=== PATIENT | female | born 1960 | race Caucasian/White ===

== ENCOUNTER 2020-02-14 16:58 | Inpatient (IN) ==
[2020-02-14] MEDS ORDERED: 0.9 % Sodium Chloride 500 ML IVC ONE ×2 (17:44→19:17)
[2020-02-14 17:52] LABS: Bilirubin,Urine Negative (Negative); Blood,Urine Negative (Negative); Clarity,Urine Cloudy (Clear); Color,Urine Yellow (Yellow); Glucose,Urine (UA) Normal (Normal); Ketones,Urine Negative (Negative); Leukocyte Esterase,Urine Moderate (Negative); Nitrite,Urine Negative (Negative); Protein,Urine Negative (Neg-Trace); Specific Gravity,Urine 1.014 (1.010-1.025); Urobilinogen,Urine Normal (Normal)
[2020-02-14 17:54] LABS: Bacteria,Urine Few per hpf (None-Few); Hyaline Casts,Urine None Seen per lpf (None-Few); Squamous Epithelial Cell,Urine Many per lpf (None-Few)
[2020-02-14 18:13] LABS: RBC,Urine 0-3 per hpf (0-3)
[2020-02-14] MEDS ORDERED: *HR* HYDROcodone/Acet 10/325 mg TABLET PO ONE (18:42)
[2020-02-14] MEDS ORDERED: *HR* HYDROmorphone (PF) 1 MG/ML SYRINGE IVP ONE (18:43)
[2020-02-14 18:44] LABS: Basophils # 0.1 K/mcL (0.0-0.2); Basophils % 0.3 %; Eosinophils # 0.1 K/mcL (0.0-0.6); Eosinophils % 0.4 %; Hematocrit 32.4 % (35.3-44.9); Hemoglobin 10.1 g/dL (11.5-15.4); Immature Granulocytes % 0.5 % (0-4); Lymphocytes # 1.1 K/mcL (0.6-4.6); Lymphocytes % 6.9 %; Mean Corpuscular HGB Conc 31.2 g/dL (31.6-35.5); Mean Corpuscular Hemoglobin 27.8 pg (28.0-33.3); Mean Corpuscular Volume 89.3 fL (83.0-100.0); Mean Platelet Volume 10.5 fL (9.4-12.4); Monocytes # 0.7 K/mcL (0.0-1.3); Monocytes % 4.6 %; Neutrophils # 13.6 K/mcL (1.6-8.9); Platelet Count 279 K/mcL (140-400); Red Blood Count 3.63 M/mcL (3.82-4.97); Red Cell Distribution Width 17.5 % (11.5-14.5); Segmented Neutrophils % 87.3 %; White Blood Count 15.6 K/mcL (4.3-11.1)
[2020-02-14 19:14] LABS: Alanine Aminotransferase 10 Units/L (7-52); Albumin 3.7 g/dL (3.5-5.7); Albumin/Globulin Ratio 1.1 (1.1-2.2); Alkaline Phosphatase 93 Units/L (34-104); Aspartate Amino Transferase 17 Units/L (13-39); BUN/Creatinine Ratio 24 (6-26); Bilirubin,Direct 0.1 mg/dL (0.0-0.2); Bilirubin,Indirect 0.2 mg/dL (0.0-1.0); Bilirubin,Total 0.3 mg/dL (0.3-1.0); Blood Urea Nitrogen 40 mg/dL (6-20); Calcium 8.6 mg/dL (8.6-10.3); Carbon Dioxide 20 mEq/L (23-29); Chloride 102 mEq/L (98-107); Globulin 3.3 g/dL (2.4-3.5); Glucose 185 mg/dL (70-105); Lipase 56 Units/L (11-82); Osmolality,Calculated 291 (280-300); Potassium 5.2 mEq/L (3.5-5.1); Sodium 133 mEq/L (136-145); Troponin I < 0.03 ng/mL (< 0.04); eGFR For African Americans 38 (> 60); eGFR For Non-African Americans 31 (> 60)
[2020-02-14] MEDS ORDERED: Piperacillin/Tazobactam 3.375 GM in Water for inj. (sterile) 20 ML IVP ONE (19:17)
[2020-02-14] MEDS ORDERED: Naloxone 0.4 MG/ML INJ IVP PRN (19:56)
[2020-02-14] MEDS ORDERED: *HR* Promethazine 25 MG/ML VIAL IVP PRN (20:02)
[2020-02-14] MEDS ORDERED: Ondansetron 4 MG/2 ML VIAL IVP PRN (20:02)
[2020-02-14] MEDS ORDERED: 0.9 % Sodium Chloride 1,000 ML IVC SCH (20:15)
[2020-02-14] MEDS ORDERED: NON-FORMULARY MEDICATION 1 EACH EACH (Alendronate Sodium 70 MG) PO SCH (20:45)
[2020-02-14] MEDS ORDERED: Dextrose Gel 15 GM/37.5 ML TUBE PO PRN ×2 (20:58)
[2020-02-14] MEDS ORDERED: *HR* Dextrose 50 % in Water (Syg) 50 ML SYRINGE IVP PRN (20:58)
[2020-02-14] MEDS ORDERED: D5% in Water 1,000 ML IVC PRN (20:58)
[2020-02-14] MEDS ORDERED: NON-FORMULARY MEDICATION 1 EACH EACH (Gabapentin [Neurontin] 600 MG) PO SCH (21:00)
[2020-02-14] MEDS: Pregabalin 75 MG CAPSULE PO SCH (21:53)
[2020-02-14] MEDS: Insulin LISPRO 300 UNITS/3 ML VIAL SQ SCH (21:54)
[2020-02-14] MEDS: Piperacillin/Tazobactam 3.375 GM in 0.9 % Sodium Chloride Mini Bag 100 ML IVPB SCH (23:50)
[2020-02-15] MEDS: *HR* Heparin 5,000 UNIT/ML VIAL SQ SCH ×2 (06:07→17:21)
[2020-02-15] MEDS: Levothyroxine 25 MCG TABLET PO SCH (06:07)
[2020-02-15] MEDS: Insulin LISPRO 300 UNITS/3 ML VIAL SQ SCH ×4 (07:43→21:52)
[2020-02-15] MEDS: Aspirin Enteric Coated 81 MG Tablet PO SCH (07:50)
[2020-02-15] MEDS: Pregabalin 75 MG CAPSULE PO SCH (07:51)
[2020-02-15] MEDS: Cholecalciferol (D-3) 1,000 UNIT (25MCG) TABLET PO SCH (07:51)
[2020-02-15] MEDS: Piperacillin/Tazobactam 3.375 GM in 0.9 % Sodium Chloride Mini Bag 100 ML IVPB SCH ×2 (07:51→17:21)
[2020-02-15] MEDS: (Leflunomide [Arava] 20 MG) PO SCH (07:52)
[2020-02-15 08:06] LABS: Hematocrit 32.1 % (35.3-44.9); Hemoglobin 9.6 g/dL (11.5-15.4); Mean Corpuscular HGB Conc 29.9 g/dL (31.6-35.5); Mean Corpuscular Hemoglobin 27.5 pg (28.0-33.3); Mean Platelet Volume 10.2 fL (9.4-12.4); Platelet Count 243 K/mcL (140-400); Red Blood Count 3.49 M/mcL (3.82-4.97); Red Cell Distribution Width 17.7 % (11.5-14.5); White Blood Count 11.8 K/mcL (4.3-11.1)
[2020-02-15 08:24] LABS: Calcium 7.9 mg/dL (8.6-10.3); Potassium 4.7 mEq/L (3.5-5.1)
[2020-02-15] MEDS ORDERED: Furosemide 40 MG TABLET PO SCH (09:00)
[2020-02-15] MEDS ORDERED: lisinopriL 20 MG TABLET PO SCH (09:00)
[2020-02-15 10:30] LABS: Carcinoembryonic Antigen 2.3 ng/mL (Less than 5.0)
[2020-02-15] MEDS ORDERED: Isovue-370 500 ML BOTTLE IVP ONE (10:44)
[2020-02-15] MEDS: Tiotropium 18 MCG inhalation IH SCH (10:59)
[2020-02-15] MEDS ORDERED: Ringers Solution, Lactated 1,000 ML IVC ONE (12:27)
[2020-02-15] MEDS ORDERED: predniSONE 5 MG TABLET PO SCH (12:45)
[2020-02-15] MEDS: Hydrocortisone Sodium Succ 100 MG/2 ML VIAL IVP SCH (17:21)
[2020-02-15] MEDS: hydrOXYzine pamoate 25 MG CAPSULE PO SCH (21:52)
[2020-02-15] MEDS: Pregabalin 50 MG CAPSULE PO SCH (21:52)
[2020-02-16 02:59] LABS: Hematocrit 26.8 % (35.3-44.9); Hemoglobin 8.5 g/dL (11.5-15.4); Mean Corpuscular HGB Conc 31.7 g/dL (31.6-35.5); Mean Corpuscular Hemoglobin 28.3 pg (28.0-33.3); Mean Corpuscular Volume 89.3 fL (83.0-100.0); Mean Platelet Volume 9.8 fL (9.4-12.4); Platelet Count 212 K/mcL (140-400); Red Cell Distribution Width 17.1 % (11.5-14.5)
[2020-02-16 03:17] LABS: Calcium 7.8 mg/dL (8.6-10.3); Potassium 4.8 mEq/L (3.5-5.1)
[2020-02-16] MEDS: Piperacillin/Tazobactam 3.375 GM in 0.9 % Sodium Chloride Mini Bag 100 ML IVPB SCH ×3 (03:26→18:34)
[2020-02-16] MEDS: Hydrocortisone Sodium Succ 100 MG/2 ML VIAL IVP SCH ×3 (03:26→10:15)
[2020-02-16] MEDS: *HR* Heparin 5,000 UNIT/ML VIAL SQ SCH ×2 (05:38→17:19)
[2020-02-16] MEDS: Levothyroxine 25 MCG TABLET PO SCH (05:39)
[2020-02-16] MEDS: Insulin LISPRO 300 UNITS/3 ML VIAL SQ SCH ×4 (07:52→21:29)
[2020-02-16] MEDS: Tiotropium 18 MCG inhalation IH SCH (08:27)
[2020-02-16] MEDS ORDERED: *HR* Midazolam HCl 5 MG/5 ML VIAL IVP ONE ×2 (09:10→23:21)
[2020-02-16] MEDS ORDERED: *HR* Midazolam HCl 2 MG/2 ML VIAL IV ONE (09:10)
[2020-02-16] MEDS ORDERED: *HR* Etomidate 20 MG/10 ML AMPUL IVP ONE (09:10)
[2020-02-16] MEDS: Cholecalciferol (D-3) 1,000 UNIT (25MCG) TABLET PO SCH (10:15)
[2020-02-16] MEDS: Pregabalin 50 MG CAPSULE PO SCH ×2 (10:16→21:29)
[2020-02-16] MEDS: BuPROPion XL (24 HR) 150 MG TABLET PO SCH (10:16)
[2020-02-16] MEDS: (Leflunomide [Arava] 20 MG) PO SCH (10:16)
[2020-02-16] MEDS: Aspirin Enteric Coated 81 MG Tablet PO SCH (10:16)
[2020-02-16] MEDS: hydrOXYzine pamoate 25 MG CAPSULE PO SCH (21:29)
[2020-02-16] MEDS ORDERED: *HR* LORazepam 2 MG/ML VIAL IVP ONE ×2 (21:48→23:23)
[2020-02-16] MEDS ORDERED: Levalbuterol Neb 1.25 MG/3 ML ONE (21:51)
[2020-02-16 21:58] LABS: ABG Base Excess -8 mEq/L (-2 to 3); ABG HCO3 18 mEq/L (21-27); ABG Oxygen Saturation 79 % (95-98); ABG PCO2 39 mmHg (35-45); ABG PH 7.29 pH Units (7.32-7.45); ABG PO2 48 mmHg (85-104); ABG TCO2 20 mEq/L (20-26)
[2020-02-16] MEDS: Levalbuterol Neb 1.25 MG/3 ML IH SCH (22:32)
[2020-02-16] MEDS ORDERED: *HR* Metoprolol 5 MG/5 ML VIAL IVP ONE (23:09)
[2020-02-16] MEDS ORDERED: *HR* LORazepam 2 MG/ML VIAL ONE (23:22)
[2020-02-16 23:41] LABS: Basophils # 0.1 K/mcL (0.0-0.2); Basophils % 0.5 %; Eosinophils # 0.1 K/mcL (0.0-0.6); Eosinophils % 0.6 %; Hematocrit 31.4 % (35.3-44.9); Hemoglobin 9.2 g/dL (11.5-15.4); Immature Granulocytes % 2.2 % (0-4); Lymphocytes # 3.9 K/mcL (0.6-4.6); Lymphocytes % 20.2 %; Mean Corpuscular HGB Conc 29.3 g/dL (31.6-35.5); Mean Corpuscular Hemoglobin 27.3 pg (28.0-33.3); Mean Corpuscular Volume 93.2 fL (83.0-100.0); Mean Platelet Volume 9.7 fL (9.4-12.4); Monocytes # 1.8 K/mcL (0.0-1.3); Monocytes % 9.1 %; Neutrophils # 13.1 K/mcL (1.6-8.9); Nucleated Red Blood Cells 0.1 /100 WBC (0); Platelet Count 386 K/mcL (140-400); Red Blood Count 3.37 M/mcL (3.82-4.97); Segmented Neutrophils % 67.4 %; White Blood Count 19.4 K/mcL (4.3-11.1)
[2020-02-16 23:45] LABS: Prothrombin Time 11.7 Seconds (9.4-12.1)
[2020-02-16] MEDS ORDERED: Artificial Tears SOLN 15 ML BOTTLE BOTH EYES PRN (23:47)
[2020-02-16] MEDS ORDERED: *HR* Midazolam HCl 2 MG/2 ML VIAL IVP ONE (23:51)
[2020-02-17] LABS: Albumin 3.1 g/dL (3.5-5.7); Albumin/Globulin Ratio 1.1 (1.1-2.2); Bilirubin,Total 0.3 mg/dL (0.3-1.0); Calcium 8.1 mg/dL (8.6-10.3); Globulin 2.7 g/dL (2.4-3.5); Potassium 4.5 mEq/L (3.5-5.1); Total Protein 5.8 g/dL (6.4-8.9)
[2020-02-17] MEDS ORDERED: 0.9 % Sodium Chloride 1,000 ML IVC ONE (00:02)
[2020-02-17] MEDS ORDERED: *HR* Metoprolol 5 MG/5 ML VIAL IVP ONE ×2 (00:40→00:45)
[2020-02-17] MEDS ORDERED: 0.9 % Sodium Chloride 1,000 ML IV ONE (01:01)
[2020-02-17] MEDS: FentaNYL (PF) 1,000 MCG in 0.9 % Sodium Chloride 80 ML IVC SCH ×3 (01:31→17:26)
[2020-02-17] MEDS: Artificial Tears SOLN 15 ML BOTTLE BOTH EYES SCH ×6 (01:49→21:06)
[2020-02-17] MEDS: Chlorhexidine Rinse 15 ML MOUTHWASH MM SCH ×3 (01:49→21:06)
[2020-02-17] MEDS: Levalbuterol Neb 1.25 MG/3 ML IH SCH ×4 (01:49→11:14)
[2020-02-17] MEDS ORDERED: *HR* Heparin 5,000 UNIT/ML VIAL IVP PRN ×2 (02:23)
[2020-02-17] MEDS ORDERED: 0.9 % Sodium Chloride 1,000 ML ONE ×2 (02:56→06:02)
[2020-02-17] MEDS: Heparin 25,000 UNIT/250 ML D5W 25,000 UNIT/250 ML IV.SOLN IVC SCH (03:00)
[2020-02-17 03:05] LABS: Hematocrit 27.1 % (35.3-44.9); Hemoglobin 8.2 g/dL (11.5-15.4); Mean Corpuscular HGB Conc 30.3 g/dL (31.6-35.5); Mean Corpuscular Hemoglobin 27.6 pg (28.0-33.3); Mean Corpuscular Volume 91.2 fL (83.0-100.0); Mean Platelet Volume 9.6 fL (9.4-12.4); Platelet Count 235 K/mcL (140-400); Red Blood Count 2.97 M/mcL (3.82-4.97); Red Cell Distribution Width 17.1 % (11.5-14.5); White Blood Count 11.9 K/mcL (4.3-11.1)
[2020-02-17 04:33] LABS: ABG Base Excess -7 mEq/L (-2 to 3); ABG HCO3 20 mEq/L (21-27); ABG Oxygen Saturation 100 % (95-98); ABG PCO2 40 mmHg (35-45); ABG PO2 363 mmHg (85-104); ABG TCO2 21 mEq/L (20-26); Blood Gas VT 500 cc
[2020-02-17] MEDS: Norepinephrine 4 MG in 0.9 % Sodium Chloride 250 ML IVC SCH ×2 (05:00→11:40)
[2020-02-17] MEDS: MethylPREDNISolone 40 MG/ML VIAL IVP SCH ×3 (06:00→17:25)
[2020-02-17] MEDS ORDERED: Meropenem 1,000 MG in Water for inj. (sterile) 20 ML IVP SCH (06:00)
[2020-02-17] MEDS: Levothyroxine 25 MCG TABLET PO SCH (06:00)
[2020-02-17 06:59] LABS: Basophils # 0.1 K/mcL (0.0-0.2); Basophils % 0.3 %; Eosinophils % 0.1 %; Hematocrit 26.8 % (35.3-44.9); Hemoglobin 8.2 g/dL (11.5-15.4); Immature Granulocytes % 1.4 % (0-4); Lymphocytes # 2.2 K/mcL (0.6-4.6); Lymphocytes % 15.4 %; Mean Corpuscular HGB Conc 30.6 g/dL (31.6-35.5); Mean Corpuscular Hemoglobin 27.9 pg (28.0-33.3); Mean Corpuscular Volume 91.2 fL (83.0-100.0); Mean Platelet Volume 9.8 fL (9.4-12.4); Monocytes # 1.3 K/mcL (0.0-1.3); Monocytes % 8.9 %; Neutrophils # 10.7 K/mcL (1.6-8.9); Nucleated Red Blood Cells 0.1 /100 WBC (0); Platelet Count 282 K/mcL (140-400); Red Blood Count 2.94 M/mcL (3.82-4.97); Red Cell Distribution Width 17.2 % (11.5-14.5); Segmented Neutrophils % 73.9 %; White Blood Count 14.5 K/mcL (4.3-11.1)
[2020-02-17 07:16] LABS: BUN/Creatinine Ratio 16 (6-26); Blood Urea Nitrogen 24 mg/dL (6-20); Carbon Dioxide 18 mEq/L (23-29); Chloride 102 mEq/L (98-107); Glucose 177 mg/dL (70-105); Magnesium 1.9 mg/dL (1.6-2.6); Osmolality,Calculated 276 (280-300); Potassium 4.9 mEq/L (3.5-5.1); Sodium 129 mEq/L (136-145); Transferrin 188 mg/dL (203-362); eGFR For African Americans 42 (> 60); eGFR For Non-African Americans 35 (> 60)
[2020-02-17] MEDS: Tiotropium 18 MCG inhalation IH SCH (07:23)
[2020-02-17 07:38] LABS: Folate 10.6 ng/mL (3.0-16.0)
[2020-02-17 07:41] LABS: % Iron Saturation 21 % (15-50); Ferritin > 1500 ng/mL (10-120); Iron 55 mcg/dL (50-170)
[2020-02-17] MEDS: Insulin LISPRO 300 UNITS/3 ML VIAL SQ SCH ×4 (07:44→21:06)
[2020-02-17 07:57] LABS: Estimated Average Glucose 160 mg/dl
[2020-02-17] MEDS: Pregabalin 50 MG CAPSULE PO SCH ×2 (08:56→21:06)
[2020-02-17] MEDS: Cholecalciferol (D-3) 1,000 UNIT (25MCG) TABLET PO SCH (08:56)
[2020-02-17] MEDS: BuPROPion XL (24 HR) 150 MG TABLET PO SCH (08:56)
[2020-02-17] MEDS: (Leflunomide [Arava] 20 MG) PO SCH (08:56)
[2020-02-17] MEDS: Aspirin Enteric Coated 81 MG Tablet PO SCH (08:56)
[2020-02-17] MEDS ORDERED: predniSONE 10 MG TABLET PO SCH (09:00)
[2020-02-17] MEDS ORDERED: metroNIDAZOLE 500 MG TABLET PO SCH (09:00)
[2020-02-17] MEDS ORDERED: Perflutren Lipid Microsphere 1.3 ML in 0.9 % Sodium Chloride 8.7 ML IVP ONE (09:16)
[2020-02-17] MEDS ORDERED: Dexmedetomidine HCl 400 MCG/100 ML MLS IVC ONE (10:56)
[2020-02-17] MEDS: Dexmedetomidine HCl 400 MCG/100 ML MLS IVC SCH ×2 (10:58→15:27)
[2020-02-17] MEDS: MetroNIDAZOLE 500 MG/100 ML 500 MG/100 ML BAG IVPB SCH ×2 (11:00→17:18)
[2020-02-17] MEDS: Ipratropium 1 PUFF INHALER IH SCH ×3 (13:54→20:00)
[2020-02-17] MEDS: Aztreonam 2,000 MG in Water for inj. (sterile) 20 ML IVP SCH (16:06)
[2020-02-17] MEDS: Pantoprazole 40 MG VIAL IVP SCH (16:08)
[2020-02-17 16:40] LABS: Hematocrit 26.5 % (35.3-44.9); Hemoglobin 8.3 g/dL (11.5-15.4)
[2020-02-17] MEDS: hydrOXYzine pamoate 25 MG CAPSULE PO SCH (21:06)
[2020-02-17] MEDS ORDERED: Levalbuterol Neb 1.25 MG/3 ML IH SCH (21:50)
[2020-02-18] MEDS: Ipratropium 1 PUFF INHALER IH SCH ×7 (00:22→23:35)
[2020-02-18] MEDS: Artificial Tears SOLN 15 ML BOTTLE BOTH EYES SCH ×7 (00:51→23:56)
[2020-02-18] MEDS: Aztreonam 2,000 MG in Water for inj. (sterile) 20 ML IVP SCH ×4 (00:51→23:55)
[2020-02-18] MEDS: Insulin LISPRO 300 UNITS/3 ML VIAL SQ SCH ×7 (00:52→23:56)
[2020-02-18] MEDS: MethylPREDNISolone 40 MG/ML VIAL IVP SCH ×5 (00:52→23:56)
[2020-02-18] MEDS: MetroNIDAZOLE 500 MG/100 ML 500 MG/100 ML BAG IVPB SCH ×5 (00:52→23:56)
[2020-02-18] MEDS: Heparin 25,000 UNIT/250 ML D5W 25,000 UNIT/250 ML IV.SOLN IVC SCH (01:00)
[2020-02-18] MEDS: Dexmedetomidine HCl 400 MCG/100 ML MLS IVC SCH ×5 (01:36→23:55)
[2020-02-18] MEDS: FentaNYL (PF) 1,000 MCG in 0.9 % Sodium Chloride 80 ML IVC SCH ×3 (01:37→14:07)
[2020-02-18 05:49] LABS: Basophils % 0.1 %; Eosinophils % 0.1 %; Hematocrit 25.9 % (35.3-44.9); Immature Granulocytes % 0.6 % (0-4); Lymphocytes # 0.7 K/mcL (0.6-4.6); Lymphocytes % 5.7 %; Mean Corpuscular HGB Conc 30.9 g/dL (31.6-35.5); Mean Corpuscular Hemoglobin 27.9 pg (28.0-33.3); Mean Corpuscular Volume 90.2 fL (83.0-100.0); Mean Platelet Volume 9.8 fL (9.4-12.4); Monocytes # 0.5 K/mcL (0.0-1.3); Monocytes % 3.7 %; Neutrophils # 11.4 K/mcL (1.6-8.9); Nucleated Red Blood Cells 0.2 /100 WBC (0); Platelet Count 160 K/mcL (140-400); Red Blood Count 2.87 M/mcL (3.82-4.97); Red Cell Distribution Width 17.5 % (11.5-14.5); Segmented Neutrophils % 89.8 %; White Blood Count 12.7 K/mcL (4.3-11.1)
[2020-02-18] MEDS: Levothyroxine 25 MCG TABLET PO SCH (05:58)
[2020-02-18 06:06] LABS: Calcium 8.1 mg/dL (8.6-10.3); Magnesium 2.1 mg/dL (1.6-2.6); Potassium 5.2 mEq/L (3.5-5.1)
[2020-02-18] MEDS: Pantoprazole 40 MG VIAL IVP SCH (08:18)
[2020-02-18] MEDS: Chlorhexidine Rinse 15 ML MOUTHWASH MM SCH ×2 (08:18→19:39)
[2020-02-18] MEDS: BuPROPion XL (24 HR) 150 MG TABLET PO SCH ×2 (08:18→08:50)
[2020-02-18] MEDS: Pregabalin 50 MG CAPSULE PO SCH ×3 (08:18→19:39)
[2020-02-18] MEDS: Aspirin Enteric Coated 81 MG Tablet PO SCH (08:19)
[2020-02-18] MEDS: (Leflunomide [Arava] 20 MG) PO SCH (08:19)
[2020-02-18] MEDS: Cholecalciferol (D-3) 1,000 UNIT (25MCG) TABLET PO SCH ×2 (08:19→08:50)
[2020-02-18] MEDS ORDERED: Furosemide 20 MG/2 ML VIAL IVP ONE (08:31)
[2020-02-18] MEDS: Aspirin 81 MG TAB.CHEW PO SCH (08:50)
[2020-02-18] MEDS: *HR* LORazepam 2 MG/ML VIAL IVP SCH (09:41)
[2020-02-18] MEDS: hydrOXYzine pamoate 25 MG CAPSULE PO SCH (19:39)
[2020-02-19 03:57] LABS: Basophils % 0.1 %; Hematocrit 27.6 % (35.3-44.9); Hemoglobin 8.3 g/dL (11.5-15.4); Immature Granulocytes % 0.9 % (0-4); Lymphocytes # 0.7 K/mcL (0.6-4.6); Lymphocytes % 4.5 %; Mean Corpuscular HGB Conc 30.1 g/dL (31.6-35.5); Mean Corpuscular Hemoglobin 27.4 pg (28.0-33.3); Mean Corpuscular Volume 91.1 fL (83.0-100.0); Mean Platelet Volume 9.8 fL (9.4-12.4); Monocytes # 0.5 K/mcL (0.0-1.3); Monocytes % 3.5 %; Neutrophils # 13.2 K/mcL (1.6-8.9); Nucleated Red Blood Cells 0.2 /100 WBC (0); Platelet Count 183 K/mcL (140-400); Red Blood Count 3.03 M/mcL (3.82-4.97); Red Cell Distribution Width 17.6 % (11.5-14.5); White Blood Count 14.5 K/mcL (4.3-11.1)
[2020-02-19 04:17] LABS: BUN/Creatinine Ratio 34 (6-26); Blood Urea Nitrogen 30 mg/dL (6-20); Calcium 8.5 mg/dL (8.6-10.3); Carbon Dioxide 24 mEq/L (23-29); Chloride 109 mEq/L (98-107); Glucose 161 mg/dL (70-105); Magnesium 2.1 mg/dL (1.6-2.6); Osmolality,Calculated 296 (280-300); Phosphorous 3.1 mg/dL (2.7-4.5); Potassium 5.3 mEq/L (3.5-5.1); Sodium 138 mEq/L (136-145); eGFR For African Americans > 60 (> 60); eGFR For Non-African Americans > 60 (> 60)
[2020-02-19] MEDS: Ipratropium 1 PUFF INHALER IH SCH ×6 (04:23→23:36)
[2020-02-19] MEDS: Dexmedetomidine HCl 400 MCG/100 ML MLS IVC SCH (04:24)
[2020-02-19] MEDS: Norepinephrine 4 MG in 0.9 % Sodium Chloride 250 ML IVC SCH (04:24)
[2020-02-19] MEDS: Artificial Tears SOLN 15 ML BOTTLE BOTH EYES SCH ×2 (04:24→08:00)
[2020-02-19] MEDS: Insulin LISPRO 300 UNITS/3 ML VIAL SQ SCH ×5 (04:25→16:15)
[2020-02-19] MEDS: Levothyroxine 25 MCG TABLET PO SCH (05:52)
[2020-02-19] MEDS: MethylPREDNISolone 40 MG/ML VIAL IVP SCH ×3 (05:52→18:06)
[2020-02-19] MEDS: MetroNIDAZOLE 500 MG/100 ML 500 MG/100 ML BAG IVPB SCH ×3 (05:52→21:43)
[2020-02-19] MEDS ORDERED: Furosemide 20 MG/2 ML VIAL IVP ONE (07:11)
[2020-02-19] MEDS: Pregabalin 50 MG CAPSULE PO SCH ×2 (07:59→21:45)
[2020-02-19] MEDS: Aspirin 81 MG TAB.CHEW PO SCH (07:59)
[2020-02-19] MEDS: Pantoprazole 40 MG VIAL IVP SCH (07:59)
[2020-02-19] MEDS: Cholecalciferol (D-3) 1,000 UNIT (25MCG) TABLET PO SCH (07:59)
[2020-02-19] MEDS: Aztreonam 2,000 MG in Water for inj. (sterile) 20 ML IVP SCH (07:59)
[2020-02-19] MEDS: BuPROPion XL (24 HR) 150 MG TABLET PO SCH (07:59)
[2020-02-19] MEDS: Chlorhexidine Rinse 15 ML MOUTHWASH MM SCH (08:00)
[2020-02-19] MEDS: (Leflunomide [Arava] 20 MG) PO SCH (08:01)
[2020-02-19] MEDS ORDERED: Aminoglycoside Consult 1 EACH MC ONE (08:17)
[2020-02-19] MEDS: *HR* LORazepam 2 MG/ML VIAL IVP SCH (08:33)
[2020-02-19] MEDS ORDERED: lisinopriL 5 MG TABLET PO SCH (10:45)
[2020-02-19] MEDS ORDERED: D5% in Water 1,000 ML IVC PRN ×2 (12:26→17:03)
[2020-02-19] MEDS ORDERED: Dextrose Gel 15 GM/37.5 ML TUBE PO PRN ×3 (12:26→17:03)
[2020-02-19] MEDS ORDERED: *HR* Dextrose 50 % in Water (Syg) 50 ML SYRINGE IVP PRN ×2 (12:26→17:03)
[2020-02-19] MEDS ORDERED: Insulin DETEMIR 100 UNIT/ML X5UNITS SQ SCH (12:30)
[2020-02-19] MEDS ORDERED: Cefepime HCl 2,000 MG in Water for inj. (sterile) 20 ML IVP SCH (16:00)
[2020-02-19] MEDS ORDERED: Ondansetron 4 MG/2 ML VIAL IVP PRN (17:03)
[2020-02-19] MEDS ORDERED: *HR* Promethazine 25 MG/ML VIAL IVP PRN (17:03)
[2020-02-19] MEDS ORDERED: Naloxone 0.4 MG/ML INJ IVP PRN (17:03)
[2020-02-19] MEDS ORDERED: *HR* Heparin 5,000 UNIT/ML VIAL SQ SCH (18:00)
[2020-02-19] MEDS: *HR* Heparin 5,000 UNIT/ML VIAL SQ SCH (18:06)
[2020-02-19] MEDS ORDERED: MetroNIDAZOLE 500 MG/100 ML 500 MG/100 ML BAG IVPB SCH (20:00)
[2020-02-19] MEDS ORDERED: hydrOXYzine pamoate 25 MG CAPSULE PO SCH (21:00)
[2020-02-19] MEDS: Insulin DETEMIR 100 UNIT/ML X5UNITS SQ SCH (21:44)
[2020-02-20] MEDS: MethylPREDNISolone 40 MG/ML VIAL IVP SCH ×3 (00:03→11:46)
[2020-02-20] MEDS: Cefepime HCl 2,000 MG in Water for inj. (sterile) 20 ML IVP SCH ×3 (00:03→15:48)
[2020-02-20] MEDS: MetroNIDAZOLE 500 MG/100 ML 500 MG/100 ML BAG IVPB SCH ×3 (04:21→21:15)
[2020-02-20] MEDS: Ipratropium 1 PUFF INHALER IH SCH ×6 (04:30→23:24)
[2020-02-20] MEDS: Levothyroxine 25 MCG TABLET PO SCH (05:40)
[2020-02-20] MEDS: *HR* Heparin 5,000 UNIT/ML VIAL SQ SCH ×2 (05:40→17:52)
[2020-02-20 06:23] LABS: Hematocrit 28.9 % (35.3-44.9); Hemoglobin 8.8 g/dL (11.5-15.4); Mean Corpuscular HGB Conc 30.4 g/dL (31.6-35.5); Mean Corpuscular Hemoglobin 27.7 pg (28.0-33.3); Mean Corpuscular Volume 90.9 fL (83.0-100.0); Mean Platelet Volume 9.7 fL (9.4-12.4); Platelet Count 237 K/mcL (140-400); Red Blood Count 3.18 M/mcL (3.82-4.97); Red Cell Distribution Width 18.1 % (11.5-14.5); White Blood Count 15.5 K/mcL (4.3-11.1)
[2020-02-20 06:41] LABS: BUN/Creatinine Ratio 37 (6-26); Blood Urea Nitrogen 30 mg/dL (6-20); Calcium 8.8 mg/dL (8.6-10.3); Carbon Dioxide 24 mEq/L (23-29); Chloride 109 mEq/L (98-107); Glucose 144 mg/dL (70-105); Osmolality,Calculated 305 (280-300); Potassium 4.1 mEq/L (3.5-5.1); Sodium 143 mEq/L (136-145); eGFR For African Americans > 60 (> 60); eGFR For Non-African Americans > 60 (> 60)
[2020-02-20] MEDS ORDERED: Isovue-370 500 ML BOTTLE IVP ONE (08:01)
[2020-02-20] MEDS: Insulin LISPRO 300 UNITS/3 ML VIAL SQ SCH ×3 (08:08→16:09)
[2020-02-20] MEDS: Cholecalciferol (D-3) 1,000 UNIT (25MCG) TABLET PO SCH (08:14)
[2020-02-20] MEDS: Pregabalin 50 MG CAPSULE PO SCH ×2 (08:14→21:17)
[2020-02-20] MEDS: BuPROPion XL (24 HR) 150 MG TABLET PO SCH (08:14)
[2020-02-20] MEDS: Aspirin 81 MG TAB.CHEW PO SCH (08:15)
[2020-02-20] MEDS: lisinopriL 5 MG TABLET PO SCH (08:15)
[2020-02-20] MEDS ORDERED: Patient Taking Own Medication 1 EACH PO SCH (09:00)
[2020-02-20] MEDS ORDERED: Metoprolol XL (24 HR) Succ 25 MG TAB.ER.24H PO SCH ×2 (09:00)
[2020-02-20] MEDS ORDERED: Pantoprazole 40 MG VIAL IVP SCH (09:00)
[2020-02-20] MEDS: Furosemide 40 MG TABLET PO SCH (13:40)
[2020-02-20] MEDS ORDERED: Levalbuterol Neb 0.63 MG/3 ML IH PRN (16:02)
[2020-02-20] MEDS: Doxycycline 100 MG in 0.9 % Sodium Chloride Mini Bag 100 ML IVPB SCH (17:52)
[2020-02-20] MEDS ORDERED: Benzonatate 100 MG CAPSULE PO PRN (20:37)
[2020-02-20] MEDS: Insulin DETEMIR 100 UNIT/ML X5UNITS SQ SCH (21:15)
[2020-02-20] MEDS: Metoprolol XL (24 HR) Succ 25 MG TAB.ER.24H PO SCH (21:17)
[2020-02-21] MEDS: Cefepime HCl 2,000 MG in Water for inj. (sterile) 20 ML IVP SCH ×4 (00:07→23:15)
[2020-02-21] MEDS: Ipratropium 1 PUFF INHALER IH SCH ×6 (03:36→23:52)
[2020-02-21] MEDS: MetroNIDAZOLE 500 MG/100 ML 500 MG/100 ML BAG IVPB SCH ×2 (05:01→11:34)
[2020-02-21] MEDS: *HR* Heparin 5,000 UNIT/ML VIAL SQ SCH ×2 (05:22→16:36)
[2020-02-21] MEDS: Doxycycline 100 MG in 0.9 % Sodium Chloride Mini Bag 100 ML IVPB SCH (05:23)
[2020-02-21] MEDS: Levothyroxine 25 MCG TABLET PO SCH (05:24)
[2020-02-21 05:36] LABS: Hematocrit 27.1 % (35.3-44.9); Hemoglobin 8.2 g/dL (11.5-15.4); Mean Corpuscular HGB Conc 30.3 g/dL (31.6-35.5); Mean Corpuscular Hemoglobin 27.8 pg (28.0-33.3); Mean Corpuscular Volume 91.9 fL (83.0-100.0); Mean Platelet Volume 9.6 fL (9.4-12.4); Platelet Count 221 K/mcL (140-400); Red Blood Count 2.95 M/mcL (3.82-4.97); Red Cell Distribution Width 18.5 % (11.5-14.5); White Blood Count 12.2 K/mcL (4.3-11.1)
[2020-02-21 05:55] LABS: BUN/Creatinine Ratio 31 (6-26); Blood Urea Nitrogen 34 mg/dL (6-20); Calcium 8.3 mg/dL (8.6-10.3); Carbon Dioxide 28 mEq/L (23-29); Chloride 109 mEq/L (98-107); Glucose 153 mg/dL (70-105); Magnesium 1.8 mg/dL (1.6-2.6); Osmolality,Calculated 307 (280-300); Potassium 3.7 mEq/L (3.5-5.1); Sodium 143 mEq/L (136-145); eGFR For African Americans > 60 (> 60); eGFR For Non-African Americans 52 (> 60)
[2020-02-21] MEDS: Insulin LISPRO 300 UNITS/3 ML VIAL SQ SCH ×3 (08:09→16:28)
[2020-02-21] MEDS: Metoprolol XL (24 HR) Succ 25 MG TAB.ER.24H PO SCH ×2 (08:15→20:23)
[2020-02-21] MEDS: Cholecalciferol (D-3) 1,000 UNIT (25MCG) TABLET PO SCH (08:16)
[2020-02-21] MEDS: predniSONE 20 MG TABLET PO SCH (08:16)
[2020-02-21] MEDS: Aspirin 81 MG TAB.CHEW PO SCH (08:17)
[2020-02-21] MEDS: lisinopriL 5 MG TABLET PO SCH (08:17)
[2020-02-21] MEDS: BuPROPion XL (24 HR) 150 MG TABLET PO SCH (08:17)
[2020-02-21] MEDS: Furosemide 40 MG TABLET PO SCH (08:17)
[2020-02-21] MEDS: Pregabalin 50 MG CAPSULE PO SCH ×2 (08:17→20:23)
[2020-02-21] MEDS ORDERED: hydrOXYzine pamoate 25 MG CAPSULE PO PRN (10:08)
[2020-02-21] MEDS: metroNIDAZOLE 500 MG TABLET PO SCH (16:27)
[2020-02-21] MEDS: Insulin DETEMIR 100 UNIT/ML X5UNITS SQ SCH (20:23)
[2020-02-21] MEDS: Doxycycline 100 MG CAPSULE PO SCH (20:23)
[2020-02-22] MEDS: metroNIDAZOLE 500 MG TABLET PO SCH ×2 (02:24→08:37)
[2020-02-22 03:08] LABS: Basophils % 0.2 %; Eosinophils # 0.1 K/mcL (0.0-0.6); Eosinophils % 1.1 %; Hemoglobin 8.1 g/dL (11.5-15.4); Immature Granulocytes % 2.6 % (0-4); Lymphocytes # 2.3 K/mcL (0.6-4.6); Lymphocytes % 21.8 %; Mean Corpuscular Hemoglobin 27.6 pg (28.0-33.3); Mean Corpuscular Volume 92.2 fL (83.0-100.0); Mean Platelet Volume 9.9 fL (9.4-12.4); Monocytes # 0.8 K/mcL (0.0-1.3); Monocytes % 7.5 %; Neutrophils # 7.1 K/mcL (1.6-8.9); Nucleated Red Blood Cells 0.7 /100 WBC (0); Platelet Count 203 K/mcL (140-400); Red Blood Count 2.93 M/mcL (3.82-4.97); Red Cell Distribution Width 17.7 % (11.5-14.5); Segmented Neutrophils % 66.8 %; White Blood Count 10.7 K/mcL (4.3-11.1)
[2020-02-22] MEDS: Ipratropium 1 PUFF INHALER IH SCH ×4 (03:49→15:49)
[2020-02-22] MEDS: Levothyroxine 25 MCG TABLET PO SCH (05:59)
[2020-02-22] MEDS: *HR* Heparin 5,000 UNIT/ML VIAL SQ SCH (06:00)
[2020-02-22] MEDS: Insulin LISPRO 300 UNITS/3 ML VIAL SQ SCH (08:23)
[2020-02-22] MEDS: Furosemide 40 MG TABLET PO SCH (08:37)
[2020-02-22] MEDS: predniSONE 20 MG TABLET PO SCH (08:37)
[2020-02-22] MEDS: Doxycycline 100 MG CAPSULE PO SCH (08:37)
[2020-02-22] MEDS: Metoprolol XL (24 HR) Succ 25 MG TAB.ER.24H PO SCH (08:37)
[2020-02-22] MEDS: lisinopriL 5 MG TABLET PO SCH (08:37)
[2020-02-22] MEDS: Cholecalciferol (D-3) 1,000 UNIT (25MCG) TABLET PO SCH (08:37)
[2020-02-22] MEDS: BuPROPion XL (24 HR) 150 MG TABLET PO SCH (08:37)
[2020-02-22] MEDS: Aspirin 81 MG TAB.CHEW PO SCH (08:37)
[2020-02-22] MEDS: Cefepime HCl 2,000 MG in Water for inj. (sterile) 20 ML IVP SCH (08:38)
[2020-02-22] MEDS: Pregabalin 50 MG CAPSULE PO SCH (08:38)
[2020-02-22 10:44] VITALS: BP 125/60
== END 2020-02-22 17:00 | disposition home or self-care (01) | DRG 249 ==
LOC: 3ANU 16:58 → EMEROOARM 16:58 → SUATTDRO 20:06 → 3ANU 21:04 → ICNU 02-17 00:19 → 3NENU 02-19 17:04
PROVIDERS: ADMIT Family Medicine; ATTEND Pharmacist

== ENCOUNTER 2020-05-28 10:19 | Inpatient (IN) ==
[2020-05-28] MEDS ORDERED: *HR* FentaNYL (PF) 100 MCG/2 ML VIAL ONE ×2 (10:39→15:51)
[2020-05-28] MEDS ORDERED: *HR* Propofol 200 MG/20 ML VIAL IVP ONE (10:40)
[2020-05-28] MEDS ORDERED: *HR* Midazolam HCl 2 MG/2 ML VIAL ONE (10:40)
[2020-05-28] MEDS ORDERED: cefOXitin 2,000 MG in Water for inj. (sterile) 20 ML IVP ONE (10:41)
[2020-05-28] MEDS ORDERED: Ringers Solution, Lactated 1,000 ML IVC SCH (10:45)
[2020-05-28] MEDS ORDERED: *HR* Succinylcholine 200 MG/10 ML VIAL IVP ONE (10:49)
[2020-05-28] MEDS ORDERED: *HR* Rocuronium Bromide 50 MG/5 ML VIAL ONE ×2 (10:49→14:36)
[2020-05-28] MEDS ORDERED: *HR* Promethazine 25 MG/ML VIAL IVP PRN (11:36)
[2020-05-28] MEDS ORDERED: *HR* HYDROmorphone (PF) 1 MG/ML SYRINGE IVP PRN (11:36)
[2020-05-28] MEDS ORDERED: Famotidine 20 MG/2 ML VIAL IVP ONE (11:36)
[2020-05-28] MEDS ORDERED: *HR* OxyCODONE Immed Rel 5 MG TABLET PO PRN (11:36)
[2020-05-28] MEDS ORDERED: *HR* HYDROmorphone 2 MG TABLET PO PRN (11:36)
[2020-05-28] MEDS ORDERED: Acetaminophen IV 1,000 MG/100 ML INFUS..BTL IVPB ONE (11:36)
[2020-05-28] MEDS ORDERED: *HR* Labetalol 20 MG/4 ML SYRINGE IVP PRN (11:36)
[2020-05-28] MEDS ORDERED: Pregabalin 75 MG CAPSULE PO ONE (11:36)
[2020-05-28] MEDS ORDERED: *HR* LORazepam 1 MG TABLET PO ONE (12:03)
[2020-05-28] MEDS ORDERED: *HR* PHENYLEPHRINE 1,000 MCG/10 ML SYRINGE IVP ONE (12:48)
[2020-05-28] MEDS ORDERED: Dexamethasone 4 MG/ML VIAL ONE (14:36)
[2020-05-28] MEDS ORDERED: Ondansetron 4 MG/2 ML VIAL ONE (14:36)
[2020-05-28] MEDS ORDERED: *HR* HYDROMORPHONE 2 MG/ML VIAL ONE (16:25)
[2020-05-28] MEDS ORDERED: Albuterol 2.5 MG/3 ML NEBULIZER ONE (16:55)
[2020-05-28] MEDS ORDERED: *HR* HYDROmorphone (PF) 1 MG/ML SYRINGE ONE (17:01)
[2020-05-28] MEDS ORDERED: Albuterol 2.5 MG/3 ML NEBULIZER IH ONE (17:03)
[2020-05-28] MEDS ORDERED: *HR* Dextrose 50 % in Water (Vial) 50 ML VIAL IVP PRN (17:58)
[2020-05-28] MEDS ORDERED: Naloxone 0.4 MG/ML INJ IVP PRN (17:58)
[2020-05-28] MEDS ORDERED: Morphine Sulfate Oral CONC 10 MG/0.5 ML ORAL.SYG SL PRN (17:58)
[2020-05-28] MEDS ORDERED: 0.9 % Sodium Chloride 1,000 ML IVC SCH (17:58)
[2020-05-28] MEDS ORDERED: Dextrose Gel 15 GM/37.5 ML TUBE PO PRN ×2 (17:58)
[2020-05-28] MEDS ORDERED: D5% in Water 1,000 ML IVC PRN (17:58)
[2020-05-28] MEDS: Ketorolac 30 MG/ML VIAL IVP SCH ×2 (19:57→23:46)
[2020-05-28] MEDS: Acetaminophen IV 1,000 MG/100 ML INFUS..BTL IVPB SCH ×2 (19:57→23:43)
[2020-05-28] MEDS: MetroNIDAZOLE 500 MG/100 ML 500 MG/100 ML BAG IVPB SCH ×2 (19:58→23:45)
[2020-05-28] MEDS: Insulin LISPRO 300 UNITS/3 ML VIAL SQ SCH (20:18)
[2020-05-28] MEDS: Pregabalin 75 MG CAPSULE PO SCH (20:19)
[2020-05-28] MEDS: *HR* OxyCODONE Immed Rel 5 MG TABLET PO PRN (23:45)
[2020-05-29] MEDS: Insulin LISPRO 300 UNITS/3 ML VIAL SQ SCH ×4 (05:32→17:54)
[2020-05-29] MEDS: Ketorolac 30 MG/ML VIAL IVP SCH ×3 (05:56→17:52)
[2020-05-29] MEDS: Acetaminophen IV 1,000 MG/100 ML INFUS..BTL IVPB SCH ×3 (05:57→18:02)
[2020-05-29] MEDS: MetroNIDAZOLE 500 MG/100 ML 500 MG/100 ML BAG IVPB SCH (06:04)
[2020-05-29 06:31] LABS: Basophils % 0.4 %; Eosinophils % 0.1 %; Hematocrit 32.5 % (35.3-44.9); Hemoglobin 9.6 g/dL (11.5-15.4); Immature Granulocytes % 0.4 % (0-4); Lymphocytes # 0.6 K/mcL (0.6-4.6); Lymphocytes % 5.7 %; Mean Corpuscular HGB Conc 29.5 g/dL (31.6-35.5); Mean Corpuscular Volume 88.1 fL (83.0-100.0); Mean Platelet Volume 10.1 fL (9.4-12.4); Monocytes # 0.5 K/mcL (0.0-1.3); Monocytes % 4.8 %; Platelet Count 201 K/mcL (140-400); Red Blood Count 3.69 M/mcL (3.82-4.97); Red Cell Distribution Width 16.6 % (11.5-14.5); Segmented Neutrophils % 88.6 %; White Blood Count 10.2 K/mcL (4.3-11.1)
[2020-05-29 06:42] LABS: Calcium 7.6 mg/dL (8.6-10.3); Potassium 4.8 mEq/L (3.5-5.1)
[2020-05-29] MEDS: Pantoprazole 40 MG VIAL IVP SCH (08:04)
[2020-05-29] MEDS: BuPROPion XL (24 HR) 150 MG TABLET PO SCH (08:04)
[2020-05-29] MEDS: Pregabalin 75 MG CAPSULE PO SCH ×2 (08:04→20:32)
[2020-05-29] MEDS ORDERED: levoFLOXacin 500 MG/100 ML 500 MG/100 ML BAG IVPB SCH (09:00)
[2020-05-29] MEDS: *HR* OxyCODONE Immed Rel 5 MG TABLET PO PRN (09:52)
[2020-05-29] MEDS: *HR* Heparin 5,000 UNIT/ML VIAL SQ SCH ×2 (17:55→18:28)
[2020-05-29] MEDS ORDERED: Insulin LISPRO 300 UNITS/3 ML VIAL SQ SCH (21:00)
[2020-05-30] MEDS: Acetaminophen IV 1,000 MG/100 ML INFUS..BTL IVPB SCH ×3 (00:44→11:45)
[2020-05-30] MEDS: Ketorolac 30 MG/ML VIAL IVP SCH ×3 (00:45→11:44)
[2020-05-30] MEDS: *HR* Heparin 5,000 UNIT/ML VIAL SQ SCH (06:09)
[2020-05-30] MEDS: BuPROPion XL (24 HR) 150 MG TABLET PO SCH (08:01)
[2020-05-30] MEDS: Pregabalin 75 MG CAPSULE PO SCH (08:02)
[2020-05-30] MEDS: Insulin LISPRO 300 UNITS/3 ML VIAL SQ SCH ×2 (08:03→11:46)
[2020-05-30] MEDS: Pantoprazole 40 MG VIAL IVP SCH (09:44)
[2020-05-30 10:06] VITALS: BP 95/60
== END 2020-05-30 14:17 | disposition home or self-care (01) | DRG 231 ==
LOC: SAMDAY 10:19 → 3ANU 17:57
PROVIDERS: ADMIT Surgery; ATTEND Surgery

== ENCOUNTER 2021-03-25 13:49 | Observation (INO) ==
[2021-03-25] MEDS ORDERED: CeFAZolin Syr 2,000MG/20 ML 2,000 MG/20 ML SYRINGE IVPB ONE (14:48)
[2021-03-25] MEDS ORDERED: *HR* Midazolam HCl 2 MG/2 ML VIAL ONE (14:59)
[2021-03-25] MEDS ORDERED: *HR* FentaNYL (PF) 100 MCG/2 ML VIAL ONE ×2 (14:59→16:34)
[2021-03-25] MEDS ORDERED: *HR* Propofol 200 MG/20 ML VIAL IVP ONE (14:59)
[2021-03-25] MEDS ORDERED: Lidocaine -MPF 2% 2 ML VIAL ONE (15:00)
[2021-03-25] MEDS ORDERED: Ondansetron 4 MG/2 ML VIAL ONE (15:00)
[2021-03-25] MEDS ORDERED: *HR* Rocuronium Bromide 50 MG/5 ML VIAL ONE (15:00)
[2021-03-25] MEDS ORDERED: Ringers Solution, Lactated 1,000 ML IVC SCH (15:00)
[2021-03-25] MEDS ORDERED: ROPIVACAINE/PF/NS 0.25% 1 EACH SYRINGE INTRAART ONE (15:21)
[2021-03-25] MEDS ORDERED: Ropivacaine/PF 0.5% 30 ML VIAL ONE (15:21)
[2021-03-25] MEDS ORDERED: D5% in Lactated Ringers 1,000 ML IVC ONE (15:42)
[2021-03-25] MEDS ORDERED: Lidocaine/EPI 1:100k 1% 50 ML VIAL ONE (16:05)
[2021-03-25] MEDS ORDERED: EPHEDrine 50 MG/ML VIAL ONE (17:06)
[2021-03-25] MEDS ORDERED: Albuterol 2.5 MG/3 ML NEBULIZER IH ONE (20:03)
[2021-03-25] MEDS ORDERED: Albuterol 2.5 MG/3 ML NEBULIZER ONE (20:04)
[2021-03-25] MEDS ORDERED: Naloxone 0.4 MG/ML INJ IVP PRN (20:51)
[2021-03-25] MEDS ORDERED: Acetaminophen 325 MG TABLET PO PRN (20:51)
[2021-03-25] MEDS ORDERED: *HR* OxyCODONE Immed Rel 5 MG TABLET PO PRN (20:51)
[2021-03-25] MEDS ORDERED: *HR* HYDROcodone/Acet 5/325 mg TABLET PO PRN (20:51)
[2021-03-25] MEDS ORDERED: Ibuprofen 400 MG TABLET PO PRN (20:51)
[2021-03-25] MEDS ORDERED: Sacubitril/Valsartan 24/26 MG 1 TABLET PO SCH (21:00)
[2021-03-25] MEDS: Ringers Solution, Lactated 1,000 ML IVC SCH (21:35)
[2021-03-25] MEDS: Sacubitril/Valsartan 24/26 MG 1 TABLET PO SCH (21:40)
[2021-03-25] MEDS: Pregabalin 75 MG CAPSULE PO SCH (21:40)
[2021-03-25] MEDS: Insulin DETEMIR 100 UNIT/ML X5UNITS SUBQ SCH (23:36)
[2021-03-26] MEDS: CeFAZolin 2 GM/120 ML BAG IVPB SCH ×2 (01:24→09:20)
[2021-03-26 01:37] LABS: Hematocrit 39.4 % (35.3-44.9); Hemoglobin 12.2 g/dL (11.5-15.4); Mean Corpuscular Hemoglobin 28.2 pg (28.0-33.3); Mean Corpuscular Volume 91.2 fL (83.0-100.0); Mean Platelet Volume 10.7 fL (9.4-12.4); Platelet Count 179 K/mcL (140-400); Red Blood Count 4.32 M/mcL (3.82-4.97); Red Cell Distribution Width 17.4 % (11.5-14.5); White Blood Count 11.9 K/mcL (4.3-11.1)
[2021-03-26 02:09] LABS: BUN/Creatinine Ratio 18 (6-26); Blood Urea Nitrogen 18 mg/dL (6-20); Calcium 8.2 mg/dL (8.6-10.3); Carbon Dioxide 13 mEq/L (23-29); Chloride 102 mEq/L (98-107); Glucose 406 mg/dL (70-105); Osmolality,Calculated 293 (280-300); Potassium 4.5 mEq/L (3.5-5.1); Sodium 132 mEq/L (136-145); eGFR For African Americans > 60 (> 60); eGFR For Non-African Americans 56 (> 60)
[2021-03-26] MEDS: Ringers Solution, Lactated 1,000 ML IVC SCH (05:36)
[2021-03-26] MEDS ORDERED: Levothyroxine 25 MCG TABLET PO SCH (06:30)
[2021-03-26] MEDS ORDERED: *HR* Glimepiride 4 MG TABLET PO SCH (08:00)
[2021-03-26] MEDS ORDERED: *HR* Metformin 500 MG TABLET PO SCH (08:00)
[2021-03-26] MEDS ORDERED: (Leflunomide [Arava] 20 MG Tablet) PO SCH (09:00)
[2021-03-26] MEDS ORDERED: Aspirin Enteric Coated 81 MG Tablet PO SCH (09:00)
[2021-03-26] MEDS ORDERED: BuPROPion XL (24 HR) 150 MG TABLET PO SCH (09:00)
[2021-03-26] MEDS ORDERED: (Tiotropium Br/Olodaterol Hcl [Stiolto Respimat Inhaler]) IH SCH (09:00)
[2021-03-26] MEDS ORDERED: Furosemide 40 MG TABLET PO SCH (09:00)
[2021-03-26] MEDS: Insulin DETEMIR 100 UNIT/ML X5UNITS SUBQ SCH (09:20)
[2021-03-26] MEDS: Pregabalin 75 MG CAPSULE PO SCH (09:21)
[2021-03-26] MEDS: Sacubitril/Valsartan 24/26 MG 1 TABLET PO SCH (09:21)
[2021-03-26 12:17] VITALS: BP 111/53
[2021-03-26] MEDS ORDERED: Cholecalciferol (D-3) 1,000 UNIT (25MCG) TABLET PO SCH (18:00)
== END 2021-03-26 13:35 | disposition home or self-care (01) ==
LOC: SAMDAY 13:49 → 3NENU 13:49
PROVIDERS: ADMIT Orthopaedic Surgery Hand Surgery; ATTEND Orthopaedic Surgery Hand Surgery

== ENCOUNTER 2021-07-02 09:25 | Inpatient (IN) ==
[2021-07-02] MEDS ORDERED: *HR* HYDROcodone/Acet 5/325 mg TABLET PO PRN (10:25)
[2021-07-02] MEDS ORDERED: Dextrose Gel 15 GM/37.5 ML TUBE PO PRN ×2 (10:25)
[2021-07-02] MEDS ORDERED: D5% in Water 1,000 ML IVC PRN (10:25)
[2021-07-02] MEDS ORDERED: Naloxone 0.4 MG/ML INJ IVP PRN (10:25)
[2021-07-02] MEDS ORDERED: *HR* Dextrose 50 % in Water (Vial) 50 ML VIAL IVP PRN (10:25)
[2021-07-02] MEDS ORDERED: Acetaminophen 325 MG TABLET PO PRN (10:25)
[2021-07-02] MEDS: Insulin LISPRO 300 UNITS/3 ML VIAL SUBQ SCH ×2 (12:27→17:02)
[2021-07-02 12:56] LABS: Basophils % 0.6 %; Eosinophils # 0.3 K/mcL (0.0-0.6); Hematocrit 34.4 % (35.3-44.9); Hemoglobin 10.6 g/dL (11.5-15.4); Immature Granulocytes % 0.4 % (0-4); Lymphocytes # 0.8 K/mcL (0.6-4.6); Lymphocytes % 16.9 %; Mean Corpuscular HGB Conc 30.8 g/dL (31.6-35.5); Mean Corpuscular Volume 84.3 fL (83.0-100.0); Mean Platelet Volume 10.9 fL (9.4-12.4); Monocytes # 0.5 K/mcL (0.0-1.3); Monocytes % 9.9 %; Neutrophils # 3.3 K/mcL (1.6-8.9); Platelet Count 137 K/mcL (140-400); Red Blood Count 4.08 M/mcL (3.82-4.97); Red Cell Distribution Width 17.9 % (11.5-14.5); Segmented Neutrophils % 66.2 %
[2021-07-02 13:11] LABS: BUN/Creatinine Ratio 21 (6-26); Blood Urea Nitrogen 16 mg/dL (6-20); C-Reactive Protein 32 mg/L (Less than 10); Calcium 8.2 mg/dL (8.6-10.3); Carbon Dioxide 26 mEq/L (23-29); Chloride 106 mEq/L (98-107); Glucose 136 mg/dL (70-105); Osmolality,Calculated 291 (280-300); Potassium 3.7 mEq/L (3.5-5.1); Sodium 139 mEq/L (136-145); Vancomycin,Random 13 mcg/mL; Vancomycin,Trough 13 mcg/mL (5-10); eGFR For African Americans > 60 (> 60); eGFR For Non-African Americans > 60 (> 60)
[2021-07-02] MEDS: Insulin DETEMIR 100 UNIT/ML X5UNITS SUBQ SCH (21:24)
[2021-07-02] MEDS: Ondansetron 4 MG/2 ML VIAL IVP PRN (22:41)
[2021-07-03 02:03] LABS: Hematocrit 33.5 % (35.3-44.9); Hemoglobin 10.2 g/dL (11.5-15.4); Immature Platelets 5.5 % (1.1-6.1); Mean Corpuscular HGB Conc 30.4 g/dL (31.6-35.5); Mean Corpuscular Volume 85.2 fL (83.0-100.0); Mean Platelet Volume 10.8 fL (9.4-12.4); Red Blood Count 3.93 M/mcL (3.82-4.97); White Blood Count 5.4 K/mcL (4.3-11.1)
[2021-07-03 02:20] LABS: BUN/Creatinine Ratio 20 (6-26); Blood Urea Nitrogen 19 mg/dL (6-20); Calcium 8.2 mg/dL (8.6-10.3); Carbon Dioxide 25 mEq/L (23-29); Chloride 108 mEq/L (98-107); Glucose 143 mg/dL (70-105); Osmolality,Calculated 295 (280-300); Potassium 3.8 mEq/L (3.5-5.1); Sodium 140 mEq/L (136-145); eGFR For African Americans > 60 (> 60); eGFR For Non-African Americans 59 (> 60)
[2021-07-03] MEDS: Insulin LISPRO 300 UNITS/3 ML VIAL SUBQ SCH ×3 (08:31→17:28)
[2021-07-03] MEDS: Ondansetron 4 MG/2 ML VIAL IVP PRN (08:41)
[2021-07-03] MEDS: Insulin DETEMIR 100 UNIT/ML X5UNITS SUBQ SCH ×2 (08:41→20:47)
[2021-07-03] MEDS ORDERED: Morphine Sulfate 2 MG/ML SYRINGE IVP ONE (09:46)
[2021-07-03] MEDS ORDERED: Ipratropium/Albuterol Neb 3 ML IH SCH (16:00)
[2021-07-03] MEDS ORDERED: *HR* Propofol 200 MG/20 ML VIAL IVP ONE ×2 (16:10→16:22)
[2021-07-03] MEDS ORDERED: Lidocaine -MPF 2% 2 ML VIAL ONE ×2 (16:11→16:22)
[2021-07-03] MEDS ORDERED: *HR* FentaNYL (PF) 100 MCG/2 ML VIAL ONE ×2 (16:11)
[2021-07-03] MEDS ORDERED: Ondansetron 4 MG/2 ML VIAL ONE ×2 (16:11→16:22)
[2021-07-03] MEDS ORDERED: *HR* Midazolam HCl 2 MG/2 ML VIAL ONE (16:11)
[2021-07-03] MEDS ORDERED: *HR* EPINEPHrine 30 MG/30 ML MDV ONE (16:32)
[2021-07-03] MEDS ORDERED: Lidocaine/EPI 1:100k 1% 50 ML VIAL ONE (16:32)
[2021-07-03] MEDS ORDERED: Bupivacaine/EPI 1:200k 0.25% 50 ML VIAL ONE (16:33)
[2021-07-03] MEDS ORDERED: Neosporin OINT 15 GM TUBE TP ONE (16:33)
[2021-07-03] MEDS ORDERED: Acetaminophen IV 1,000 MG/100 ML BAG IVPB ONE (16:47)
[2021-07-03] MEDS ORDERED: Bupivacaine 0.5%-Epi 1:200,000 50 ML VIAL ONE (16:49)
[2021-07-03] MEDS ORDERED: Ondansetron 4 MG/2 ML VIAL IVP PRN ×2 (16:53→19:07)
[2021-07-03] MEDS ORDERED: *HR* FentaNYL (PF) 100 MCG/2 ML VIAL IVP PRN (16:53)
[2021-07-03] MEDS ORDERED: *HR* Heparin 5,000 UNIT/ML VIAL SQ SCH (18:00)
[2021-07-03] MEDS: *HR* HYDROmorphone PF 0.5 MG/0.5 ML SYRINGE IVP PRN ×4 (18:24→18:40)
[2021-07-03] MEDS ORDERED: Acetaminophen 325 MG TABLET PO PRN (19:07)
[2021-07-03] MEDS ORDERED: *HR* HYDROcodone/Acet 5/325 mg TABLET PO PRN (19:07)
[2021-07-03] MEDS ORDERED: D5% in Water 1,000 ML IVC PRN (19:07)
[2021-07-03] MEDS ORDERED: *HR* Dextrose 50 % in Water (Vial) 50 ML VIAL IVP PRN (19:07)
[2021-07-03] MEDS ORDERED: Naloxone 0.4 MG/ML INJ IVP PRN (19:07)
[2021-07-03] MEDS ORDERED: Dextrose Gel 15 GM/37.5 ML TUBE PO PRN ×2 (19:07)
[2021-07-03] MEDS: Sacubitril/Valsartan 24/26 MG 1 TABLET PO SCH (20:43)
[2021-07-03] MEDS: Pregabalin 75 MG CAPSULE PO SCH (20:44)
[2021-07-03] MEDS ORDERED: Sacubitril/Valsartan 24/26 MG 1 TABLET PO SCH (21:00)
[2021-07-03] MEDS ORDERED: Pregabalin 75 MG CAPSULE PO SCH (21:00)
[2021-07-03] MEDS: Ipratropium/Albuterol Neb 3 ML IH SCH (22:01)
[2021-07-04 02:56] LABS: Basophils % 0.4 %; Eosinophils % 0.4 %; Hematocrit 32.6 % (35.3-44.9); Hemoglobin 9.8 g/dL (11.5-15.4); Immature Granulocytes % 0.4 % (0-4); Lymphocytes # 0.4 K/mcL (0.6-4.6); Lymphocytes % 5.2 %; Mean Corpuscular HGB Conc 30.1 g/dL (31.6-35.5); Mean Corpuscular Hemoglobin 26.4 pg (28.0-33.3); Mean Corpuscular Volume 87.9 fL (83.0-100.0); Monocytes # 0.3 K/mcL (0.0-1.3); Monocytes % 3.6 %; Neutrophils # 6.6 K/mcL (1.6-8.9); Platelet Count 160 K/mcL (140-400); Red Blood Count 3.71 M/mcL (3.82-4.97); Red Cell Distribution Width 18.2 % (11.5-14.5); White Blood Count 7.3 K/mcL (4.3-11.1)
[2021-07-04 03:10] LABS: BUN/Creatinine Ratio 17 (6-26); Blood Urea Nitrogen 15 mg/dL (6-20); Calcium 8.4 mg/dL (8.6-10.3); Carbon Dioxide 23 mEq/L (23-29); Chloride 106 mEq/L (98-107); Glucose 294 mg/dL (70-105); Osmolality,Calculated 296 (280-300); Potassium 4.5 mEq/L (3.5-5.1); Sodium 137 mEq/L (136-145); eGFR For African Americans > 60 (> 60); eGFR For Non-African Americans > 60 (> 60)
[2021-07-04] MEDS: Ipratropium/Albuterol Neb 3 ML IH SCH ×4 (04:16→22:32)
[2021-07-04] MEDS ORDERED: Levothyroxine 25 MCG TABLET PO SCH (06:30)
[2021-07-04] MEDS: *HR* Heparin 5,000 UNIT/ML VIAL SQ SCH ×2 (06:31→17:23)
[2021-07-04] MEDS: Levothyroxine 25 MCG TABLET PO SCH ×2 (06:37→06:38)
[2021-07-04] MEDS ORDERED: BuPROPion XL (24 HR) 150 MG TABLET PO SCH (09:00)
[2021-07-04] MEDS: Insulin DETEMIR 100 UNIT/ML X5UNITS SUBQ SCH ×2 (09:10→22:00)
[2021-07-04] MEDS: Pregabalin 75 MG CAPSULE PO SCH ×2 (09:11→20:14)
[2021-07-04] MEDS: Sacubitril/Valsartan 24/26 MG 1 TABLET PO SCH ×2 (09:11→20:14)
[2021-07-04] MEDS: BuPROPion XL (24 HR) 150 MG TABLET PO SCH (09:12)
[2021-07-04] MEDS: Insulin LISPRO 300 UNITS/3 ML VIAL SUBQ SCH ×3 (09:12→17:32)
[2021-07-05 03:07] LABS: Basophils # 0.1 K/mcL (0.0-0.2); Basophils % 1.1 %; Eosinophils # 0.3 K/mcL (0.0-0.6); Eosinophils % 7.1 %; Hematocrit 29.5 % (35.3-44.9); Hemoglobin 8.8 g/dL (11.5-15.4); Immature Granulocytes % 0.4 % (0-4); Mean Corpuscular HGB Conc 29.8 g/dL (31.6-35.5); Mean Corpuscular Hemoglobin 26.7 pg (28.0-33.3); Mean Corpuscular Volume 89.4 fL (83.0-100.0); Mean Platelet Volume 10.5 fL (9.4-12.4); Monocytes # 0.4 K/mcL (0.0-1.3); Monocytes % 9.8 %; Neutrophils # 2.7 K/mcL (1.6-8.9); Platelet Count 145 K/mcL (140-400); Red Cell Distribution Width 18.6 % (11.5-14.5); Segmented Neutrophils % 59.6 %; White Blood Count 4.5 K/mcL (4.3-11.1)
[2021-07-05 03:25] LABS: Potassium 3.9 mEq/L (3.5-5.1)
[2021-07-05] MEDS: Ipratropium/Albuterol Neb 3 ML IH SCH ×4 (03:30→22:17)
[2021-07-05] MEDS: *HR* Heparin 5,000 UNIT/ML VIAL SQ SCH ×2 (06:34→17:16)
[2021-07-05] MEDS: Levothyroxine 25 MCG TABLET PO SCH (06:34)
[2021-07-05] MEDS ORDERED: Ringers Solution, Lactated 500 ML IVC SCH (08:30)
[2021-07-05] MEDS: Pregabalin 75 MG CAPSULE PO SCH ×2 (08:54→20:33)
[2021-07-05] MEDS: BuPROPion XL (24 HR) 150 MG TABLET PO SCH (08:54)
[2021-07-05] MEDS: Insulin LISPRO 300 UNITS/3 ML VIAL SUBQ SCH ×3 (08:55→16:49)
[2021-07-05] MEDS: Insulin DETEMIR 100 UNIT/ML X5UNITS SUBQ SCH ×2 (11:36→20:39)
[2021-07-05] MEDS: Ringers Solution, Lactated 1,000 ML IVC SCH ×2 (11:36→23:06)
[2021-07-06] MEDS: Ipratropium/Albuterol Neb 3 ML IH SCH (03:10)
[2021-07-06] MEDS ORDERED: Furosemide 20 MG/2 ML VIAL IVP ONE (06:13)
[2021-07-06] MEDS: Levalbuterol Neb 1.25 MG/3 ML IH SCH ×4 (06:21→22:11)
[2021-07-06] MEDS: *HR* Heparin 5,000 UNIT/ML VIAL SQ SCH ×2 (06:25→18:38)
[2021-07-06] MEDS: Levothyroxine 25 MCG TABLET PO SCH (06:25)
[2021-07-06 06:43] LABS: Basophils # 0.1 K/mcL (0.0-0.2); Basophils % 0.9 %; Eosinophils # 0.4 K/mcL (0.0-0.6); Eosinophils % 6.8 %; Hematocrit 34.2 % (35.3-44.9); Immature Granulocytes % 0.9 % (0-4); Lymphocytes # 0.7 K/mcL (0.6-4.6); Lymphocytes % 11.5 %; Mean Corpuscular HGB Conc 29.2 g/dL (31.6-35.5); Mean Corpuscular Hemoglobin 26.1 pg (28.0-33.3); Mean Corpuscular Volume 89.3 fL (83.0-100.0); Mean Platelet Volume 10.2 fL (9.4-12.4); Monocytes # 0.7 K/mcL (0.0-1.3); Monocytes % 12.3 %; Platelet Count 162 K/mcL (140-400); Red Blood Count 3.83 M/mcL (3.82-4.97); Red Cell Distribution Width 18.8 % (11.5-14.5); Segmented Neutrophils % 67.6 %; White Blood Count 5.8 K/mcL (4.3-11.1)
[2021-07-06 07:02] LABS: BUN/Creatinine Ratio 21 (6-26); Blood Urea Nitrogen 23 mg/dL (6-20); Calcium 8.5 mg/dL (8.6-10.3); Carbon Dioxide 24 mEq/L (23-29); Chloride 111 mEq/L (98-107); Glucose 191 mg/dL (70-105); Osmolality,Calculated 303 (280-300); Potassium 4.5 mEq/L (3.5-5.1); Sodium 142 mEq/L (136-145); eGFR For African Americans > 60 (> 60); eGFR For Non-African Americans 50 (> 60)
[2021-07-06] MEDS: Pregabalin 75 MG CAPSULE PO SCH (08:27)
[2021-07-06] MEDS: BuPROPion XL (24 HR) 150 MG TABLET PO SCH (08:27)
[2021-07-06] MEDS: Insulin LISPRO 300 UNITS/3 ML VIAL SUBQ SCH ×3 (08:27→16:27)
[2021-07-06] MEDS: Insulin DETEMIR 100 UNIT/ML X5UNITS SUBQ SCH ×2 (08:28→21:04)
[2021-07-06] MEDS ORDERED: *HR* LORazepam 0.5 MG TABLET PO ONE (09:18)
[2021-07-06] MEDS: Ringers Solution, Lactated 1,000 ML IVC SCH (12:12)
[2021-07-06] MEDS ORDERED: Furosemide 40 MG/4 ML VIAL IVP ONE (16:00)
[2021-07-06] MEDS ORDERED: *HR* LORazepam 0.5 MG TABLET PO PRN (17:35)
[2021-07-06] MEDS ORDERED: Pregabalin 75 MG CAPSULE PO SCH (21:00)
[2021-07-07] MEDS: Levalbuterol Neb 1.25 MG/3 ML IH SCH ×4 (04:55→21:37)
[2021-07-07] MEDS: *HR* Heparin 5,000 UNIT/ML VIAL SQ SCH ×2 (05:33→17:36)
[2021-07-07 06:45] LABS: Hematocrit 30.8 % (35.3-44.9); Hemoglobin 10.1 g/dL (11.5-15.4); Lymphocytes # 0.2 K/mcL (0.6-4.6); Mean Corpuscular HGB Conc 32.8 g/dL (31.6-35.5); Mean Corpuscular Hemoglobin 29.1 pg (28.0-33.3); Mean Corpuscular Volume 88.8 fL (83.0-100.0); Mean Platelet Volume 10.7 fL (9.4-12.4); Red Blood Count 3.47 M/mcL (3.82-4.97); Red Cell Distribution Width 14.3 % (11.5-14.5)
[2021-07-07 06:59] LABS: Calcium 9.2 mg/dL (8.6-10.3); Potassium 3.8 mEq/L (3.5-5.1)
[2021-07-07 07:20] LABS: White Blood Count 1.1 K/mcL (4.3-11.1)
[2021-07-07 07:21] LABS: Neutrophils # 0.6 K/mcL (1.6-8.9); Platelet Count 97 K/mcL (140-400)
[2021-07-07] MEDS: Insulin LISPRO 300 UNITS/3 ML VIAL SUBQ SCH ×3 (09:19→17:22)
[2021-07-07] MEDS: Pregabalin 50 MG CAPSULE PO SCH ×2 (09:21→22:17)
[2021-07-07] MEDS: Insulin DETEMIR 100 UNIT/ML X5UNITS SUBQ SCH ×2 (09:22→22:20)
[2021-07-07] MEDS: BuPROPion XL (24 HR) 150 MG TABLET PO SCH (09:22)
[2021-07-07 09:44] LABS: Sodium, Urine 75.3 mEq/L
[2021-07-07 09:51] LABS: Monocytes # 0.4 K/mcL (0.0-1.3); Platelet Estimate Decreased (Normal)
[2021-07-07 10:42] LABS: Bilirubin,Urine Negative (Negative); Blood,Urine Negative (Negative); Clarity,Urine Clear (Clear); Color,Urine Light-Yellow (Yellow); Glucose,Urine (UA) Normal (Normal); Ketones,Urine Negative (Negative); Leukocyte Esterase,Urine Negative (Negative); Nitrite,Urine Negative (Negative); Protein,Urine Negative (Neg-Trace); Urobilinogen,Urine Normal (Normal)
[2021-07-07 10:51] LABS: Protein/Creatinine Ratio,Urine 0.11 mg/mg (0.00-0.20)
[2021-07-07] MEDS ORDERED: Furosemide 20 MG/2 ML VIAL IVP ONE (11:13)
[2021-07-07] MEDS: *HR* LORazepam 0.5 MG TABLET PO PRN ×2 (13:40→22:20)
[2021-07-07 16:22] LABS: Basophils # 0.1 K/mcL (0.0-0.2); Basophils % 0.8 %; Eosinophils # 0.5 K/mcL (0.0-0.6); Eosinophils % 6.2 %; Hematocrit 34.2 % (35.3-44.9); Hemoglobin 10.4 g/dL (11.5-15.4); Immature Granulocytes % 0.7 % (0-4); Lymphocytes # 0.9 K/mcL (0.6-4.6); Lymphocytes % 12.3 %; Mean Corpuscular HGB Conc 30.4 g/dL (31.6-35.5); Mean Corpuscular Hemoglobin 26.4 pg (28.0-33.3); Mean Corpuscular Volume 86.8 fL (83.0-100.0); Monocytes # 1.1 K/mcL (0.0-1.3); Monocytes % 15.7 %; Platelet Count 188 K/mcL (140-400); Red Blood Count 3.94 M/mcL (3.82-4.97); Red Cell Distribution Width 18.8 % (11.5-14.5); Segmented Neutrophils % 64.3 %
[2021-07-07 16:23] LABS: Neutrophils # 4.6 K/mcL (1.6-8.9); White Blood Count 7.2 K/mcL (4.3-11.1)
[2021-07-07 16:39] LABS: BUN/Creatinine Ratio 22 (6-26); Blood Urea Nitrogen 21 mg/dL (6-20); Calcium 9.2 mg/dL (8.6-10.3); Carbon Dioxide 27 mEq/L (23-29); Chloride 103 mEq/L (98-107); Glucose 62 mg/dL (70-105); Osmolality,Calculated 287 (280-300); Potassium 4.3 mEq/L (3.5-5.1); Sodium 138 mEq/L (136-145); eGFR For African Americans > 60 (> 60); eGFR For Non-African Americans > 60 (> 60)
[2021-07-08] MEDS: Levalbuterol Neb 1.25 MG/3 ML IH SCH ×4 (03:50→22:14)
[2021-07-08] MEDS: Levothyroxine 25 MCG TABLET PO SCH (05:38)
[2021-07-08] MEDS: *HR* Heparin 5,000 UNIT/ML VIAL SQ SCH ×2 (05:38→17:33)
[2021-07-08] MEDS ORDERED: Furosemide 20 MG/2 ML VIAL IVP ONE (08:03)
[2021-07-08] MEDS: Insulin DETEMIR 100 UNIT/ML X5UNITS SUBQ SCH ×2 (08:30→21:15)
[2021-07-08] MEDS: Insulin LISPRO 300 UNITS/3 ML VIAL SUBQ SCH ×3 (08:30→17:22)
[2021-07-08] MEDS: Pregabalin 50 MG CAPSULE PO SCH ×2 (08:31→21:14)
[2021-07-08] MEDS: *HR* LORazepam 0.5 MG TABLET PO PRN (08:32)
[2021-07-08] MEDS: BuPROPion XL (24 HR) 150 MG TABLET PO SCH (08:32)
[2021-07-08] MEDS ORDERED: Fluconazole 150 MG TABLET PO ONE (09:28)
[2021-07-08 09:46] LABS: Basophils % 0.6 %; Eosinophils # 0.4 K/mcL (0.0-0.6); Eosinophils % 5.6 %; Hematocrit 32.6 % (35.3-44.9); Immature Granulocytes % 0.6 % (0-4); Lymphocytes # 0.6 K/mcL (0.6-4.6); Lymphocytes % 9.1 %; Mean Corpuscular HGB Conc 30.7 g/dL (31.6-35.5); Mean Corpuscular Hemoglobin 26.7 pg (28.0-33.3); Mean Corpuscular Volume 86.9 fL (83.0-100.0); Mean Platelet Volume 10.7 fL (9.4-12.4); Monocytes # 0.9 K/mcL (0.0-1.3); Monocytes % 13.3 %; Neutrophils # 4.8 K/mcL (1.6-8.9); Platelet Count 165 K/mcL (140-400); Red Blood Count 3.75 M/mcL (3.82-4.97); Segmented Neutrophils % 70.8 %; White Blood Count 6.8 K/mcL (4.3-11.1)
[2021-07-08 10:06] LABS: BUN/Creatinine Ratio 21 (6-26); Blood Urea Nitrogen 20 mg/dL (6-20); Calcium 8.6 mg/dL (8.6-10.3); Carbon Dioxide 25 mEq/L (23-29); Chloride 103 mEq/L (98-107); Glucose 169 mg/dL (70-105); Osmolality,Calculated 291 (280-300); Potassium 4.2 mEq/L (3.5-5.1); Sodium 137 mEq/L (136-145); eGFR For African Americans > 60 (> 60); eGFR For Non-African Americans 59 (> 60)
[2021-07-08] MEDS ORDERED: Alteplase (Cathflo) 10 MG in 0.9 % Sodium Chloride 100 ML IVPB ONE (11:30)
[2021-07-08] MEDS ORDERED: *HR* Alteplase (Cathflo) 2 MG VIAL IVP ONE (12:15)
[2021-07-08] MEDS: Nystatin POWDER 30 GM BOTTLE TP SCH (21:15)
[2021-07-08] MEDS ORDERED: Famotidine 20 MG/2 ML VIAL IVP ONE (21:17)
[2021-07-08] MEDS ORDERED: methylPREDNISolone 125 MG/2 ML VIAL IVP ONE (21:18)
[2021-07-09] MEDS: Levalbuterol Neb 1.25 MG/3 ML IH SCH ×4 (03:40→23:09)
[2021-07-09] MEDS: *HR* Heparin 5,000 UNIT/ML VIAL SQ SCH ×2 (05:15→16:58)
[2021-07-09] MEDS: Levothyroxine 25 MCG TABLET PO SCH (05:15)
[2021-07-09 05:17] LABS: Basophils % 0.6 %; Eosinophils # 0.1 K/mcL (0.0-0.6); Eosinophils % 1.5 %; Hematocrit 31.2 % (35.3-44.9); Hemoglobin 9.4 g/dL (11.5-15.4); Immature Granulocytes % 1.1 % (0-4); Lymphocytes # 0.4 K/mcL (0.6-4.6); Lymphocytes % 8.8 %; Mean Corpuscular HGB Conc 30.1 g/dL (31.6-35.5); Mean Corpuscular Volume 86.2 fL (83.0-100.0); Mean Platelet Volume 10.7 fL (9.4-12.4); Monocytes # 0.1 K/mcL (0.0-1.3); Monocytes % 2.5 %; Neutrophils # 4.1 K/mcL (1.6-8.9); Platelet Count 178 K/mcL (140-400); Red Blood Count 3.62 M/mcL (3.82-4.97); Red Cell Distribution Width 18.6 % (11.5-14.5); Segmented Neutrophils % 85.5 %; White Blood Count 4.8 K/mcL (4.3-11.1)
[2021-07-09 06:06] LABS: BUN/Creatinine Ratio 21 (6-26); Blood Urea Nitrogen 23 mg/dL (6-20); Calcium 8.7 mg/dL (8.6-10.3); Carbon Dioxide 26 mEq/L (23-29); Chloride 104 mEq/L (98-107); Glucose 268 mg/dL (70-105); Osmolality,Calculated 299 (280-300); Potassium 4.4 mEq/L (3.5-5.1); Sodium 138 mEq/L (136-145); eGFR For African Americans > 60 (> 60); eGFR For Non-African Americans 50 (> 60)
[2021-07-09] MEDS: Pregabalin 50 MG CAPSULE PO SCH ×2 (09:45→20:26)
[2021-07-09] MEDS: BuPROPion XL (24 HR) 150 MG TABLET PO SCH (09:45)
[2021-07-09] MEDS: Nystatin POWDER 30 GM BOTTLE TP SCH ×3 (09:45→20:29)
[2021-07-09] MEDS: Insulin LISPRO 300 UNITS/3 ML VIAL SUBQ SCH ×3 (09:51→16:57)
[2021-07-09] MEDS: Insulin DETEMIR 100 UNIT/ML X5UNITS SUBQ SCH ×2 (11:03→20:26)
[2021-07-09] MEDS: *HR* LORazepam 0.5 MG TABLET PO PRN (14:54)
[2021-07-10 03:21] LABS: Basophils # 0.1 K/mcL (0.0-0.2); Basophils % 0.7 %; Eosinophils # 0.2 K/mcL (0.0-0.6); Eosinophils % 2.4 %; Hematocrit 29.7 % (35.3-44.9); Immature Granulocytes % 0.5 % (0-4); Lymphocytes # 1.7 K/mcL (0.6-4.6); Lymphocytes % 19.3 %; Mean Corpuscular HGB Conc 30.3 g/dL (31.6-35.5); Mean Corpuscular Hemoglobin 25.9 pg (28.0-33.3); Mean Corpuscular Volume 85.6 fL (83.0-100.0); Mean Platelet Volume 10.9 fL (9.4-12.4); Neutrophils # 5.6 K/mcL (1.6-8.9); Platelet Count 206 K/mcL (140-400); Red Blood Count 3.47 M/mcL (3.82-4.97); Red Cell Distribution Width 18.4 % (11.5-14.5); Segmented Neutrophils % 65.1 %
[2021-07-10] MEDS: *HR* LORazepam 0.5 MG TABLET PO PRN (03:33)
[2021-07-10 03:34] LABS: White Blood Count 8.6 K/mcL (4.3-11.1)
[2021-07-10 03:40] LABS: BUN/Creatinine Ratio 29 (6-26); Blood Urea Nitrogen 25 mg/dL (6-20); Calcium 8.7 mg/dL (8.6-10.3); Carbon Dioxide 26 mEq/L (23-29); Chloride 105 mEq/L (98-107); Glucose 134 mg/dL (70-105); Osmolality,Calculated 292 (280-300); Sodium 138 mEq/L (136-145); eGFR For African Americans > 60 (> 60); eGFR For Non-African Americans > 60 (> 60)
[2021-07-10] MEDS: Levalbuterol Neb 1.25 MG/3 ML IH SCH ×3 (03:43→15:16)
[2021-07-10] MEDS: *HR* Heparin 5,000 UNIT/ML VIAL SQ SCH (05:37)
[2021-07-10] MEDS: Levothyroxine 25 MCG TABLET PO SCH (05:37)
[2021-07-10] MEDS: BuPROPion XL (24 HR) 150 MG TABLET PO SCH (10:56)
[2021-07-10] MEDS: Pregabalin 50 MG CAPSULE PO SCH (10:56)
[2021-07-10] MEDS: Insulin LISPRO 300 UNITS/3 ML VIAL SUBQ SCH ×2 (10:58→12:24)
[2021-07-10] MEDS: Insulin DETEMIR 100 UNIT/ML X5UNITS SUBQ SCH (10:59)
[2021-07-10] MEDS: Nystatin POWDER 30 GM BOTTLE TP SCH (10:59)
[2021-07-10] MEDS ORDERED: Furosemide 20 MG/2 ML VIAL IVP ONE (14:11)
[2021-07-10 14:43] VITALS: BP 110/61; PULSE 72; TEMP 98.2
[2021-07-10] MEDS ORDERED: Aspirin Enteric Coated 81 MG Tablet PO SCH (14:45)
[2021-07-10] MEDS ORDERED: Cholecalciferol (D-3) 1,000 UNIT (25MCG) TABLET PO SCH (14:45)
[2021-07-10 15:18] VITALS: O2SAT 96
[2021-07-11] MEDS ORDERED: Furosemide 40 MG TABLET PO SCH (09:00)
[2021-07-11] MEDS ORDERED: (Leflunomide [Arava] 20 MG Tablet) PO SCH (09:00)
== END 2021-07-10 18:01 | disposition home health service (06) | DRG 405 ==
LOC: 3ANU → SUATTDRO 10:13 → 3BNU 07-09 04:04
PROVIDERS: ADMIT Internal Medicine; ATTEND Student in an Organized Health Care Education/Training Program

== ENCOUNTER 2022-01-08 08:02 | Observation (INO) ==
[2022-01-08] MEDS ORDERED: *HR* Midazolam HCl 2 MG/2 ML VIAL ONE (11:21)
[2022-01-08] MEDS ORDERED: Lidocaine -MPF 2% 5 ML VIAL ONE (11:21)
[2022-01-08] MEDS ORDERED: Ondansetron 4 MG/2 ML VIAL ONE (11:21)
[2022-01-08] MEDS ORDERED: *HR* Propofol 200 MG/20 ML VIAL IVP ONE (11:21)
[2022-01-08] MEDS ORDERED: *HR* FentaNYL (PF) 100 MCG/2 ML VIAL ONE ×2 (11:21→13:37)
[2022-01-08] MEDS ORDERED: Albuterol 2.5 MG/3 ML NEBULIZER IH ONE (12:09)
[2022-01-08] MEDS ORDERED: Metoprolol XL (24 HR) Succ 25 MG TAB.ER.24H PO ONE (12:10)
[2022-01-08] MEDS ORDERED: Lidocaine -MPF 1% 5 ML AMPUL INFILT ONE (12:12)
[2022-01-08] MEDS ORDERED: Ondansetron 4 MG/2 ML VIAL IVP PRN ×2 (12:12→16:16)
[2022-01-08] MEDS ORDERED: *HR* HYDROmorphone PF 0.5 MG/0.5 ML SYRINGE IVP PRN (12:12)
[2022-01-08] MEDS ORDERED: Ipratropium Neb 0.5 MG NEBULIZER IH PRN (12:12)
[2022-01-08] MEDS ORDERED: *HR* OxyCODONE Immed Rel 5 MG TABLET PO PRN (12:12)
[2022-01-08] MEDS ORDERED: *HR* Labetalol 20 MG/4 ML SYRINGE IVP PRN (12:12)
[2022-01-08] MEDS ORDERED: Vancomycin 1,500 MG/265 ML IV.SOLN IVPB ONE (12:15)
[2022-01-08] MEDS: Ringers Solution, Lactated 1,000 ML IVC SCH (12:39)
[2022-01-08] MEDS ORDERED: Metoprolol XL (24 HR) Succ 50 MG TAB.ER.24H PO ONE (12:45)
[2022-01-08] MEDS ORDERED: Lidocaine HCL 4 ML Topical Solution (Laryng-O-Jet Kit Sterile Pak) TP ONE (13:03)
[2022-01-08] MEDS ORDERED: Vancomycin 1,000 MG VIAL ONE (13:25)
[2022-01-08] MEDS ORDERED: Sugammadex Sodium 200 MG/2 ML VIAL IV ONE (13:39)
[2022-01-08] MEDS ORDERED: Naloxone 0.4 MG/ML INJ IVP PRN (16:16)
[2022-01-08] MEDS ORDERED: D5% in Water 1,000 ML IVC PRN (16:20)
[2022-01-08] MEDS ORDERED: *HR* Dextrose 50 % in Water (Syg) 50 ML SYRINGE IVP PRN (16:20)
[2022-01-08] MEDS ORDERED: Dextrose 4 GM Chewable Tablets PO PRN ×2 (16:20)
[2022-01-08] MEDS: Insulin LISPRO 300 UNITS/3 ML VIAL SUBQ SCH (18:24)
[2022-01-08 18:31] LABS: BUN/Creatinine Ratio 19 (6-26); Blood Urea Nitrogen 19 mg/dL (6-20); eGFR For African Americans > 60 (> 60); eGFR For Non-African Americans 55 (> 60)
[2022-01-08] MEDS: Acetaminophen 325 MG TABLET PO PRN (19:32)
[2022-01-08] MEDS: *HR* OxyCODONE/APAP 5/325 TABLET PO PRN (20:13)
[2022-01-08] MEDS ORDERED: Insulin LISPRO 300 UNITS/3 ML VIAL SUBQ SCH (21:00)
[2022-01-09] MEDS: *HR* OxyCODONE/APAP 5/325 TABLET PO PRN ×3 (01:04→16:18)
[2022-01-09 04:01] LABS: Basophils # 0.1 K/mcL (0.0-0.2); Basophils % 0.7 %; Eosinophils % 0.1 %; Hematocrit 36.9 % (35.3-44.9); Hemoglobin 11.5 g/dL (11.5-15.4); Immature Granulocytes % 0.4 % (0-4); Lymphocytes # 0.4 K/mcL (0.6-4.6); Lymphocytes % 3.7 %; Mean Corpuscular HGB Conc 31.2 g/dL (31.6-35.5); Mean Corpuscular Hemoglobin 27.2 pg (28.0-33.3); Mean Corpuscular Volume 87.2 fL (83.0-100.0); Mean Platelet Volume 9.8 fL (9.4-12.4); Monocytes # 0.5 K/mcL (0.0-1.3); Monocytes % 4.2 %; Neutrophils # 10.5 K/mcL (1.6-8.9); Platelet Count 228 K/mcL (140-400); Red Blood Count 4.23 M/mcL (3.82-4.97); Red Cell Distribution Width 15.9 % (11.5-14.5); Segmented Neutrophils % 90.9 %; White Blood Count 11.6 K/mcL (4.3-11.1)
[2022-01-09 04:14] LABS: BUN/Creatinine Ratio 24 (6-26); Blood Urea Nitrogen 24 mg/dL (6-20); Calcium 8.5 mg/dL (8.6-10.3); Carbon Dioxide 27 mEq/L (23-29); Chloride 103 mEq/L (98-107); Glucose 180 mg/dL (70-105); Magnesium 1.9 mg/dL (1.6-2.6); Osmolality,Calculated 291 (280-300); Potassium 4.9 mEq/L (3.5-5.1); Sodium 136 mEq/L (136-145); eGFR For African Americans > 60 (> 60); eGFR For Non-African Americans 57 (> 60)
[2022-01-09] MEDS ORDERED: Nitroglycerin 0.4 MG TAB.SUBL SL PRN (07:09)
[2022-01-09] MEDS ORDERED: tiZANidine 4 MG TABLET PO PRN (07:09)
[2022-01-09] MEDS ORDERED: Ipratropium/Albuterol Neb 3 ML IH PRN (07:09)
[2022-01-09] MEDS: Insulin LISPRO 300 UNITS/3 ML VIAL SUBQ SCH ×3 (08:13→16:48)
[2022-01-09] MEDS: Cholecalciferol (D-3) 1,000 UNIT (25MCG) TABLET PO SCH (08:40)
[2022-01-09] MEDS: Aspirin Enteric Coated 81 MG Tablet PO SCH (08:41)
[2022-01-09] MEDS: Pregabalin 75 MG CAPSULE PO SCH ×2 (08:43→21:19)
[2022-01-09] MEDS: Furosemide 40 MG TABLET PO SCH (08:44)
[2022-01-09] MEDS: Metoprolol XL (24 HR) Succ 25 MG TAB.ER.24H PO SCH (08:44)
[2022-01-09] MEDS: Isosorbide MONOnitrate (24 HR) 30 MG TAB.ER.24H PO SCH (08:44)
[2022-01-09] MEDS: Nicotine 21 MG PATCH.TD24 TD SCH (08:50)
[2022-01-09] MEDS ORDERED: Vancomycin 1 EACH in 0.9 % Sodium Chloride 250 ML IVPB SCH (09:00)
[2022-01-09] MEDS ORDERED: levoFLOXacin 750 MG/150 ML 750 MG/150 ML BAG IVPB SCH (09:00)
[2022-01-09] MEDS: Sacubitril/Valsartan 24/26 MG 1 TABLET PO SCH ×2 (09:00→21:25)
[2022-01-09] MEDS: Levothyroxine 25 MCG TABLET PO SCH (09:00)
[2022-01-09] MEDS: Cefepime HCl 2,000 MG in 0.9 % Sodium Chloride Mini Bag 100 ML IVPB SCH (16:18)
[2022-01-09] MEDS: Nicotine 2 MG GUM BC PRN (21:19)
[2022-01-09] MEDS: Insulin DETEMIR 100 UNIT/ML X5UNITS SUBQ SCH (21:25)
[2022-01-10] MEDS: Cefepime HCl 2,000 MG in 0.9 % Sodium Chloride Mini Bag 100 ML IVPB SCH ×3 (00:20→16:23)
[2022-01-10 02:59] LABS: Basophils # 0.1 K/mcL (0.0-0.2); Basophils % 1.2 %; Eosinophils # 0.2 K/mcL (0.0-0.6); Eosinophils % 3.1 %; Hematocrit 35.5 % (35.3-44.9); Hemoglobin 10.8 g/dL (11.5-15.4); Immature Granulocytes % 0.4 % (0-4); Lymphocytes # 1.1 K/mcL (0.6-4.6); Lymphocytes % 16.6 %; Mean Corpuscular HGB Conc 30.4 g/dL (31.6-35.5); Mean Corpuscular Hemoglobin 27.4 pg (28.0-33.3); Mean Corpuscular Volume 90.1 fL (83.0-100.0); Mean Platelet Volume 9.7 fL (9.4-12.4); Monocytes # 0.6 K/mcL (0.0-1.3); Monocytes % 8.2 %; Neutrophils # 4.8 K/mcL (1.6-8.9); Platelet Count 201 K/mcL (140-400); Red Blood Count 3.94 M/mcL (3.82-4.97); Red Cell Distribution Width 16.3 % (11.5-14.5); Segmented Neutrophils % 70.5 %; White Blood Count 6.9 K/mcL (4.3-11.1)
[2022-01-10 03:12] LABS: Estimated Average Glucose 186 mg/dl; Hemoglobin A1C 8.1 %
[2022-01-10 03:38] LABS: Calcium 8.3 mg/dL (8.6-10.3); Magnesium 2.1 mg/dL (1.6-2.6); Potassium 4.3 mEq/L (3.5-5.1)
[2022-01-10 03:51] LABS: Thyroid Stimulating Hormone 3.645 mcIU/mL (0.340-5.600)
[2022-01-10] MEDS: Cholecalciferol (D-3) 1,000 UNIT (25MCG) TABLET PO SCH (08:57)
[2022-01-10] MEDS: Aspirin Enteric Coated 81 MG Tablet PO SCH (08:57)
[2022-01-10] MEDS: Pregabalin 75 MG CAPSULE PO SCH ×2 (08:58→22:03)
[2022-01-10] MEDS: Isosorbide MONOnitrate (24 HR) 30 MG TAB.ER.24H PO SCH (08:58)
[2022-01-10] MEDS: Sacubitril/Valsartan 24/26 MG 1 TABLET PO SCH ×2 (08:58→22:03)
[2022-01-10] MEDS: Furosemide 40 MG TABLET PO SCH (08:58)
[2022-01-10] MEDS: Metoprolol XL (24 HR) Succ 25 MG TAB.ER.24H PO SCH (08:59)
[2022-01-10] MEDS: *HR* OxyCODONE/APAP 5/325 TABLET PO PRN ×2 (09:01→17:29)
[2022-01-10] MEDS: Levothyroxine 25 MCG TABLET PO SCH (09:01)
[2022-01-10] MEDS: Nicotine 21 MG PATCH.TD24 TD SCH ×2 (09:02→18:02)
[2022-01-10] MEDS: Insulin LISPRO 300 UNITS/3 ML VIAL SUBQ SCH ×3 (09:04→16:44)
[2022-01-10] MEDS: Insulin DETEMIR 100 UNIT/ML X5UNITS SUBQ SCH ×2 (09:04→22:10)
[2022-01-10] MEDS: Ringers Solution, Lactated 1,000 ML IVC SCH (16:24)
[2022-01-10] MEDS: Nicotine 2 MG GUM BC PRN (22:04)
[2022-01-11] MEDS: Cefepime HCl 2,000 MG in 0.9 % Sodium Chloride Mini Bag 100 ML IVPB SCH ×3 (00:46→14:55)
[2022-01-11] MEDS: *HR* OxyCODONE/APAP 5/325 TABLET PO PRN ×3 (01:00→18:19)
[2022-01-11] MEDS: Aspirin Enteric Coated 81 MG Tablet PO SCH (09:28)
[2022-01-11] MEDS: Levothyroxine 25 MCG TABLET PO SCH (09:28)
[2022-01-11] MEDS: Isosorbide MONOnitrate (24 HR) 30 MG TAB.ER.24H PO SCH (09:28)
[2022-01-11] MEDS: Pregabalin 75 MG CAPSULE PO SCH ×2 (09:28→22:26)
[2022-01-11] MEDS: Sacubitril/Valsartan 24/26 MG 1 TABLET PO SCH ×2 (09:28→22:27)
[2022-01-11] MEDS: Furosemide 40 MG TABLET PO SCH (09:29)
[2022-01-11] MEDS: Cholecalciferol (D-3) 1,000 UNIT (25MCG) TABLET PO SCH (09:29)
[2022-01-11] MEDS: Metoprolol XL (24 HR) Succ 25 MG TAB.ER.24H PO SCH (09:29)
[2022-01-11] MEDS: Nicotine 21 MG PATCH.TD24 TD SCH (09:30)
[2022-01-11] MEDS: Insulin LISPRO 300 UNITS/3 ML VIAL SUBQ SCH ×3 (09:51→18:21)
[2022-01-11] MEDS: Insulin DETEMIR 100 UNIT/ML X5UNITS SUBQ SCH ×2 (09:51→22:27)
[2022-01-11] MEDS: Acetaminophen 325 MG TABLET PO PRN (22:55)
[2022-01-12] MEDS: Cefepime HCl 2,000 MG in 0.9 % Sodium Chloride Mini Bag 100 ML IVPB SCH (00:21)
[2022-01-12 03:02] LABS: Basophils # 0.1 K/mcL (0.0-0.2); Basophils % 0.9 %; Eosinophils # 0.2 K/mcL (0.0-0.6); Eosinophils % 2.4 %; Hematocrit 33.5 % (35.3-44.9); Hemoglobin 10.4 g/dL (11.5-15.4); Immature Granulocytes % 0.5 % (0-4); Lymphocytes # 1.3 K/mcL (0.6-4.6); Lymphocytes % 16.5 %; Mean Corpuscular Hemoglobin 27.6 pg (28.0-33.3); Mean Corpuscular Volume 88.9 fL (83.0-100.0); Mean Platelet Volume 9.7 fL (9.4-12.4); Monocytes # 0.6 K/mcL (0.0-1.3); Monocytes % 7.7 %; Neutrophils # 5.7 K/mcL (1.6-8.9); Platelet Count 182 K/mcL (140-400); Red Blood Count 3.77 M/mcL (3.82-4.97); Red Cell Distribution Width 16.1 % (11.5-14.5); White Blood Count 7.8 K/mcL (4.3-11.1)
[2022-01-12 03:20] LABS: Potassium 4.1 mEq/L (3.5-5.1)
[2022-01-12] MEDS: Isosorbide MONOnitrate (24 HR) 30 MG TAB.ER.24H PO SCH (08:30)
[2022-01-12] MEDS: Furosemide 40 MG TABLET PO SCH (08:30)
[2022-01-12] MEDS: Pregabalin 75 MG CAPSULE PO SCH ×2 (08:30→20:42)
[2022-01-12] MEDS: Nicotine 21 MG PATCH.TD24 TD SCH (08:30)
[2022-01-12] MEDS: Metoprolol XL (24 HR) Succ 25 MG TAB.ER.24H PO SCH (08:30)
[2022-01-12] MEDS: Levothyroxine 25 MCG TABLET PO SCH (08:30)
[2022-01-12] MEDS: Insulin LISPRO 300 UNITS/3 ML VIAL SUBQ SCH ×3 (08:30→17:03)
[2022-01-12] MEDS: Insulin DETEMIR 100 UNIT/ML X5UNITS SUBQ SCH ×2 (08:30→20:43)
[2022-01-12] MEDS: Aspirin Enteric Coated 81 MG Tablet PO SCH (08:30)
[2022-01-12] MEDS: Cholecalciferol (D-3) 1,000 UNIT (25MCG) TABLET PO SCH (08:30)
[2022-01-12] MEDS: Sacubitril/Valsartan 24/26 MG 1 TABLET PO SCH ×2 (08:30→20:43)
[2022-01-12] MEDS: *HR* OxyCODONE/APAP 5/325 TABLET PO PRN (15:54)
[2022-01-13] MEDS: *HR* OxyCODONE/APAP 5/325 TABLET PO PRN (04:58)
[2022-01-13 05:12] VITALS: BP 128/72; PULSE 81; TEMP 97.8; O2SAT 93
== END 2022-01-13 07:56 | disposition home health service (06) ==
LOC: 4WAOSI 08:02 → SDCAOSI 08:02 → 4WAOSI 15:40 → SUATTDRO 19:20
PROVIDERS: ADMIT Pharmacist; ATTEND General Practice